=== PATIENT | female | born 1945 | race Caucasian/White ===

== ENCOUNTER 2025-03-29 21:04 | Emergency (ER) | payer OTHER, SELFPAY ==
--- OUTSIDE RECORDS SUMMARY | 2025-03-29 21:07 | XMS_ITS | Encounter Summary ---
Author Organization [place] Address [facility] [place] [address] Care Team Providers Care Slab Depiler Operator Name Role Phone Trinidad Morris APRN AIRCRAFT MAINTENANCE MANAGER Primary Care Provi alvarado Unavailable Mauro Jackman MD Primary Care Provider [phone] Sheila Osei MD Unavailable + [phone] hSeila Osei MD Unavailable + [phone] No Ref-Primary, Physician Primary Care Provider Trinidad Morris APRN, CNP Unavailable Un available Sheila Osei MD Unavailable + [phone] Nicol Feldman MD Unavailable [phone] Reason for Visit * Reason Comments Medication Refill Tramadol Encounter Details Date Type Department Care Team (Late st Contact Info) Description 12/14/[address] [place] [address] Trinidad Morris APRN CNP Medication Refill (Tramadol ) Social History Tobacco Use Types Packs/Day Years Used Date Smoking Tobacco: Former Smokeless Tobacco: Never Alcohol Use Standard Drinks/Week Comments No 0 (1 standard drink = 0.6 oz pur e alcohol) Comments No Sex and Gender Information Value Date Recorded Sex Assigned at Not on file Legal Sex Female 3:06 AM 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 See the FNA message from this AM. She states she is in so much pain she doesn't want to live anymore if doesn't get any relief. She might start drinking alcohol to help with the pain. Informed her that the clinic just recently opened and we have not reviewed all the messages yet. She has appt tomorrow with Pain clinic. She has appt next month with Psych Last Tramadol refill on 11/15/16 for #120 Please confirm directions. The Max states 8 in 24 hours. There is a note that states she may have been taking 1 every 4 hours, so please change if needed. documented in this encounter Plan of Treatment Not on file documented as of this encounter Visit Diagnoses Not on filedocumented in this encounter Additional Health Concerns Assessment Noted Time PHQ-9 Depression Total Score: 0 10/27/19 17 7:10 AM COMPLAINT INVESTIGATOR documented as of this encounter Care Teams Slab Depiler Operator Relationship Specialty Start Date End Date Trinidad Morris APRN AIRCRAFT MAINTENANCE MANAGER PCP - General Nurse Practitioner - Adult Health 09/26/16 02/11/17 Muaro Jackman MD [address] [place] [address] PCP - General Internal Medicine 02/12/17 12/16/18 Sheila Osei MD [address] [place] [address] PCP - Assigned PCP 02/17/18 11/05/18 No Ref-Primary, Physician PCP - General 01/14/19 Sheila Osei MD [address] [place] [address] Assigned PCP 02/17/18 02/15/19 Trinidad Morris APRN AIRCRAFT MAINTENANCE MANAGER Assigned PCP 02/16/19 11/29/19 Sheila Osei MD [address] [place] [address] Assigned PCP 11/30/19 02/19/21 Nicol Feldman MD XXX RETIRED 01/31/2022 XXX Assigned OBGYN Provider 06/25/20 07/17/20 documented as of this encounter
--- OUTSIDE RECORDS SUMMARY | 2025-03-29 21:07 | XMS_ITS | Clinical Summary ---
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 Name Role Phone Pcp, No Primary Care Provider Unavailabl e Allergies Active Allergy Reactions Criticality Noted Date Comments Alosetron Other - Describe In Comment Field 02/06/2012 Other reaction(s): Other (see comments) Amitriptyline Other - Describe In Comment Field 05/29/2013 Gastritis Other reaction(s): Other (see comments) Gastritis Gastritis Amlodipine Edema 11/15/2011 Other reaction(s): Edema Amoxapine Other - Describe In Comment Field 02/06/2012 Other reaction(s): Other (see comments) Atenolol Other - Describe In Comment Field 09/26/2016 Other reaction(s): Other (see comments) Atropine Other - Describe In Comment Field 09/26/2016 Other reaction(s): Other (see comments) Buprenorphine-Naloxone Diabetes, Exacerbation,Emoti onal Disturbance,Anxiet y,Other - Describe In Comment Field 11/19/2016 Other reaction(s): Diabetes, Exacerbation, Emotional Disturbance Other reaction(s): Diabetes, Exacerbation, Emotional Disturbance Bupropion Other - Describe In Comment Field 02/06/2012 Other reaction(s): Other (see comments) Buspirone Other - Describe In Comment Field 09/26/2016 Other reaction(s): Other (see comments) Cholestyramine Other - Describe In Comment Field 09/26/2016 Other reaction(s): Other (see comments) Ciprofloxacin Other - Describe In Comment Field 09/26/2016 Other reaction(s): Other (see comments) Citalopram Other - Describe In Comment Field 02/06/2012 Other reaction(s): Other (see comments) Clomipramine Other - Describe In Comment Field 02/06/2012 Other reaction(s): Other (see comments) Colesevelam Other - Describe In Comment Field 02/06/2012 Other reaction(s): Other (see comments) Cortisone Other - Describe In Comment Field Medium 12/28/2015 Lack of appetite Other reaction(s): Other - Describe In Comment Field Lack of appetite Other reaction(s): Other (see comments) Other reaction(s): Other - Describe In Comment Field Lack of appetite Lack of appetite Other reaction(s): Other - Describe In Comment Field Lack of appetite Cyclobenzaprine Intolerance-Can't Take,Nausea And Vomiting 03/30/2016 Caused knee pain at night Other reaction(s): GI intolerance, Intolerance-Can't Take Caused knee pain at night Caused knee pain at night Caused knee pain at night Diphenoxylate Other - Describe In Comment Field 02/06/2012 Other reaction(s): Other (see comments) Doxepin Other - Describe In Comment Field 05/29/2013 Other reaction(s): Other (see comments) Duloxetine Other - Describe In Comment Field 05/29/2013 Other reaction(s): Other (see comments) Escitalopram Other - Describe In Comment Field 02/06/2012 Other reaction(s): Other (see comments) Fluoxetine Other - Describe In Comment Field 02/06/2012 Other reaction(s): Other (see comments) Gabapentin GI Upset,Other - Describe In Comment Field Medium 03/30/2016 Other reaction(s): GI Upset Other reaction(s): GI Upset Other reaction(s): GI Upset, Other (see comments) Other reaction(s): GI Upset Hydrochlorothiazide Other - Describe In Comment Field 09/26/2016 Other reaction(s): Other (see comments) Hydrocodone-Acetaminophen Rash Low 04/10/2012 Mixture of vicodin and tramadol. Patient developed acne from [place] Mixture of vicodin and tramadol. Patient developed acne from [place] Mixture of vicodin and tramadol. Patient developed acne from [place] Lidocaine Other - Describe In Comment Field 09/26/2016 Lidocaine patch changed taste of food Other reaction(s): Other (see comments) Lidocaine patch changed taste of food Lidocaine patch changed taste of food Lorazepam Other - Describe In Comment Field 09/26/2016 Other reaction(s): Other (see comments) Losartan Intolerance-Can't Take 07/19/2015 Other reaction(s): GI intolerance Other reaction(s): GI intolerance, Intolerance-Can't Take Mirtazapine *Unknown 05/29/2013 Nitroimidazoles Intolerance-Can't Take,Other - Describe In Comment Field 12/13/2011 Other reaction(s): GI intolerance Other reaction(s): Other (see comments) Nortriptyline Other - Describe In Comment Field 09/26/2016 Other reaction(s): Other (see comments) Olanzapine Other - Describe In Comment Field 02/06/2012 Other reaction(s): Other (see comments) Oxycodone Other - Describe In Comment Field 09/26/2016 Other reaction(s): Other (see comments) Penicillin G Rash Medium 11/21/2011 Penicillins Hives 07/13/2011 Quetiapine Other - Describe In Comment Field 02/06/2012 Other reaction(s): Other (see comments) Thioridazine Other - Describe In Comment Field 02/06/2012 Other reaction(s): Other (see comments) Trazodone Other - Describe In Comment Field 02/06/2012 Other reaction(s): Other (see comments) Zolpidem Other - Describe In Comment Field 02/06/2012 Other reaction(s): Other (see comments) Medications Digestive Enzymes capsuleIndication s:Generalized abdominal discomfort Take 1 capsule by mouth 3 times daily before meals. 0 07/07/20 13 Active cholecalciferol (VITAMIN D-3) 2,000 unit capsule Take 1 capsule by mouth once daily. 0 07/14/20 13 Active lactobacillus rhamnosus, GG, (CULTURELLE PROBIOTICS) 10 billion cell -200 mg capsule Take 1 Cap by mouth once daily. 0 07/14/20 13 Active Magnesium 200 mg tab Take 2 tablets by mouth 3 times daily. 0 07/29/20 13 Active omega-3 fatty acids-vitamin E (FISH OIL) 1,000 mg cap Take 1 capsule by mouth 2 times daily. 0 07/29/20 13 Active Acetylcysteine 600 mg cap Take 600 mg by mouth once daily. 0 07/29/20 13 Active Glutamine (L-GLUTAMINE) 500 mg tab Take 500 mg by mouth once daily if needed. 0 04/02/20 15 Active camphor-menthol (TIGER BALM) oint Apply to affected areas as needed 0 04/02/20 15 Active benzoyl peroxide 5% 5 % gel Apply topically to affected area(s) once daily. 0 04/02/20 15 Active benzoyl peroxide 10% (BENZAC-W WASH) 10 % external wash Apply topically to affected area(s) 2 times daily. 1 Bottle 0 04/02/20 15 Active Milk Thistle 150 mg cap Take 150 mg by mouth once daily. 0 04/02/20 15 Active Valerian Root 250 mg cap Take 250 mg by mouth at bedtime if needed. 0 04/02/20 15 Active medication order composer YUNIOR 500mg 1 tab by mouth three times daily 0 07/19/20 15 Active Cranberry 400 mg capsule Take 1 capsule by mouth 3 times daily. 0 08/17/20 15 Active capsaicin (ZOSTRIX) 0.025 % creamIndications: Degeneration of L4-L5 intervertebral disc,Low back pain radiating to left leg apply to affected areas as needed for pain. 0 09/28/19 16 Active lysine (L-LYSINE) 500 mg tab Take 2 tablets by mouth 3 times daily. 0 01/24/20 16 Active Melatonin 5 mg tab Take 2 tablets by mouth at bedtime. 0 01/24/20 16 Active multivitamin (MVI) tablet Take 2 tab po twice daily 0 01/24/20 16 Active medication order composer Patient taking Inflammacore. Use at least 1 scoop daily. 0 04/28/20 16 Active carvedilol (COREG) 6.25 mg tabletIndications :HTN (hypertension) Take 3 tablets by mouth 2 times daily with meals. 90 tablet 1 09/04/19 17 Active ciclopirox solution (LOPROX) 8 % solutionIndicatio ns:Nail fungus Apply topically to affected area(s) at bedtime. On fingernails at bedtime 1 Bottle 09/13/19 17 Active acetaminophen (TYLENOL) 325 mg tabletIndications :Chronic pain syndrome Take 1-2 tablets by mouth every 4 hours if needed. Max acetaminophen dose: 4000mg in 24 hrs. 0 09/20/19 17 Active loperamide (IMODIUM) 2 mg capsuleIndication s:Loose stools Take 4mg by mouth with 1st loose stool, then 2mg with each subsequent loose stool. Max 16 mg in 24 hrs 0 09/20/19 17 Active pyridoxine, vitamin B6, (VITAMIN B6) 50 mg tabletIndications :Healthcare maintenance Take 5 tablets by mouth once daily. 09/20/19 17 Active lisinopril (PRINIVIL; ZESTRIL) 20 mg tabletIndications :Essential hypertension Take 1 tablet by mouth 2 times daily. 180 tablet 09/22/19 17 Active guaiFENesin (MUCINEX) 600 mg Extended-Release tabletIndications :Pneumonia of right lower lobe due to infectious organism Take 1 tablet by mouth 2 times daily. 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 Length of need: 10 days 1 Kit 10/11/19 17 Active erythromycin ophthalmic ointment 0.5%Indications:B lepharitis, unspecified laterality, unspecified type Place 1 Strip into the eye(s) 6 times daily. 3.5 g 3 7 4:05 PM CDT 11/16/19 17 Active fluconazole (DIFLUCAN) 150 mg tabletIndications :Adalgisa infection 150mg PO q72 hours x2 2 tablet 03/29/20 18 Active benzonatate (TESSALON) 200 mg capsuleIndication s:Acute viral bronchitis Take 1 capsule by mouth 3 times daily if needed for Cough. 20 capsule 10/22/19 20 Active albuterol (PROVENTIL) 0.083 % neb solutionIndicatio ns:Acute viral bronchitis Inhale 3 mL via a nebulizer every 6 hours if needed. 1 box 10/22/19 20 Active traMADoL (ULTRAM) 50 mg tabletIndications :Chronic pain of left lower extremity,Chronic abdominal pain Take 1 Tablet (50 mg) by mouth every 8 hours if needed for Pain. 6 Tablet 03/12/20 25 Active traMADol (ULTRAM) 50 mg tablet Take 100 mg by mouth 3 times daily. 025 Discontin ued(*Med complete/ Regimen complete/ Level of care change) cephalexin 500 mg capsuleIndication s:urinary tract infection Take 1 Capsule (500 mg) by mouth two times daily for 7 days. 14 Capsule 03/12/20 25 025 Active Problems Problem Noted Date Diagnosed Date Normocytic anemia 02/01/2025 Thrombocytopenia 02/01/2025 Hyponatremia 02/01/2025 Acute heart failure with pre served ejection fraction (HFpEF) 02/01/2025 Female genital prolapse 09/10/2018 Generalized anxiety disorder 03/30/2017 History of suicide attempt 12/27/2016 Overview (05/17/2019): Overview: multiple admissions Somatization disorder 10/26/2016 Osteoarthritis 10/26/2016 Chronic low back pain 10/26/2016 Cluster B personality disorder 09/16/2016 Opioid use disorder, severe, dependence 09/16/19 17 Pain management contract broken 09/07/2016 Overview (09/07/2016): Patient was told she could have a 1 month supply of tramadol so that she could see her new provider on my last visit with her in August. She is limited to a defined amount per month. Patient went to ER and received Codeine tablets in violation of her agreement to not get controlled substances from providers other than her designated PCP. No further tramadol or narcotics will be given. Humza Trevino MD .................... 09/07/2016 5:41 PM Pain medication agreement si gned with Dr Trevino [facility]SA 04/13/2016 04/13/2016 Overview (04/13/2016): Patient will limit her tramadol to 6 tablets a day. No early refills. No refills with other providers. 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 No early refills. Medication is for connective tissue disorder and chronic low back pain Recurrent genital herpes simplex 12/19/2012 Unspecified personality disorder 12/12/2012 Moderate recurrent major depression 07/13/2011 Connective tissue disorder 07/13/2011 Unspecified essential hypertension Chronic pain syndrome H/O: depression Resolved Problems Problem Noted Date Diagnosed Date Resolved Date Pneumonia 10/10/2016 02/01/2025 Hypokalemia 10/10/2016 02/01/2025 Hyponatremia 10/10/2016 02/01/2025 Pain medication agreement 10/15/2012 Adjustment disorder with mix ed anxiety and depressed mood 10/10/2012 09/01/2015 Unspecified essential hypertension 07/13/2011 02/01/2025 Encounters Date Type Department Care Team Description 03/28/2025 9:14 AM CDT - 03/28/2025 10:41 AM CDT Emergency [facility] [address] [place] [address] Nicholas Ren MD Myalgia (Primary Dx); Pain Discharge Disposition: Home Self Care 03/28/2025 Travel 03/12/2025 6:20 PM CDT - 03/12/2025 9:48 PM CDT [address] [address] [address] [address] Cr Valle PA Berndt, Daniel, MD Chronic pain of left lower extremity (Primary Dx); Chronic abdominal pain; Acute cystitis without hematuria Discharge Disposition: Home Self Care 02/01/2025 2:44 AM CDT - 02/01/2025 12:30 PM CDT Hospital Encounter [facility] [address] [place] [address] [facility] [place] Glynn MD Qadri, Ghaziuddin Ahmed, MBBS Murmur, heart (Primary Dx); Acute heart failure with preserved ejection fraction (HFpEF) (HC) Discharge Disposition: Against Medical Advice or Discontinued Care 01/31/2025 9:11 PM CDT - 02/01/2025 1:[address] [facility] [address] [address] Jaimie Wray MD Acute hypoxic respiratory failure (HC) (Primary Dx); Acute congestive heart failure, unspecified heart failure type (HC); Systolic murmur; Hyponatremia; Smoker Discharge Disposition: Home Self Care 01/31/2025 Telephone [facility] [address] [place] [address] Lorne Tatum MD Inpatient Physician Call 01/31/2025 Travel from Last 3 Months Immunizations Immunization Administration Dates Next Due Hepatitis B (Adult) 04/06/1992,11/03/1991,1991 Influenza, High-dose Inactivated 09/22/2016 Influenza, IIV3 (Age >=3 years) 06/03/2014,06/12 Tuberculin (PPD) 07/08/2012 Zoster (Zostavax-ZVL, live) 04/30/2012 Family History Medical History Relation Name Comments Arthritis Father rheumatoid Hypertension Father Hypertension Mother Relation Name Status Comments Father Maternal Grandfather Maternal Grandmother Mother Alive Paternal Grandfather Paternal Grandmother Sister 1 Alive Sister 2 Alive Son 1 Alive Son 2 Alive Social History Tobacco Use Types Packs/Day Years Used Date Smoking Tobacco: Former Cigarettes Q uit: 09/03/1988 Smokeless Tobacco: Former Quit: 1986 Tobacco Cessation:Counseling Given: Not Answered Alcohol Use Standard Drinks/Week Comments No 0 (1 standard drink = 0.6 oz pur e alcohol) Interpersonal Safety Answer Date Record ed Are you being hit, kicked, p ushed or yelled at (see row info)? 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 Gender Identity Not on file Sexual Orientation Not on file Occupation Industry Job Start Date Job End Date Retired Not on file Not on file Not on file Obstetrics History Last Filed Vital Signs Vital Sign Reading Time Taken Comments Blood Pressure 159/91 03/28/2025 9:30 AM CDT Pulse 87 03/28/2025 9:30 AM CDT Temperature 36.8 C (98.3 F) 03/28/2025 9:17 AM CDT Respiratory Rate 18 03/28/2025 9:17 AM CDT Oxygen Saturation 93% 03/28/2025 9:30 AM CDT Inhaled Oxygen Concentration - - Weight 62.6 kg (138 lb) 03/28/2025 9:17 AM CDT Height 172.7 cm (5' 8) 03/28/2025 9:17 AM CDT Body Mass Index 20.98 03/28/2025 9:17 AM CDT Plan of Treatment Health Maintenance Due Date Last Done Comments Pneumococcal series for age 50+ (1 of 2 - PCV) 1964 Medicare Wellness for age 65+ 2009 Zoster (shingles) series for age 50+ (2 of 3) 06/25/2012 04/30/2012 BMI (ht and wt on same day) for age 18+ 08/21/2017 08/21/2016, 01/05/2016, 12/11/2015, Additional history exists Depression screening for age 12+ 09/15/2017 09/15/2016, 08/14/2016, 05/29/2016, Additional history exists RSV vaccine for adults or (1 - 1-dose 75+ series) 2019 Tetanus booster 11/14/2021 11/15/2011 (Declined) COVID-19 vaccine series ( season) 2024 Influenza Vaccine (#1) 2025 7, 06/03/2014, 06/12/2011 Hepatitis B series for 19+ Completed 04/06, 11/03/1991, 10/05/1991 DEXA/DXA scan for age 65+ Completed 2013, 12/22/2011 (Declined) Procedures Procedure Name Priority Date/Time Associated Diagnosis Comments CBC WITH AUTO DIFFERENTIAL STAT 03/28/2025 9:29 AM CDT CK TOTAL STAT 03/28/2025 9:29 AM CDT BASIC METABOLIC PANEL STAT 03/28/2025 9:29 AM CDT CBC WITH AUTO DIFFERENTIAL STAT 03/28/2025 9:29 AM CDT CBC WITH AUTO DIFFERENTIAL STAT 03/12/2025 8:29 PM CDT ETHANOL SERUM OR PLASMA STAT 03/12/2025 8:29 PM CDT LIPASE STAT 03/12/2025 8:29 PM CDT COMP METABOLIC PANEL STAT 03/12/2025 8:29 PM CDT CBC WITH AUTO DIFFERENTIAL STAT 03/12/2025 8:29 PM CDT URINALYSIS MICROSCOPIC STAT 03/12/2025 8:27 PM CDT UA W/ SEDIMENT EXAM REFLEXED PER CRITERIA STAT 03/12/2025 8:27 PM CDT SCAN-CARDIAC STRIP 02/01/2025 7: 44 AM CDT SCAN-CARDIAC STRIP 02/01/2025 4: 16 AM CDT HEPATIC FUNCTION PANEL HAILY 02/01/2025 12:05 AM CDT TROPONIN T (HS) ONE TIME Timed 02/01/2025 12:05 AM CDT EKG 12 LEAD STAT 01/31/2025 10:32 PM CDT XR CHEST 1 VIEW PORTABLE STAT 01/31/2025 10:18 PM CDT CBC WITH AUTO DIFFERENTIAL STAT 01/31/2025 9:54 PM CDT PRO-BNP STAT 01/31/2025 9:54 PM CDT TROPONIN T (HS) ACUTE W/2HR REFLEX STAT 01/31/2025 9:54 PM CDT BASIC METABOLIC PANEL STAT 01/31/2025 9:54 PM CDT CBC WITH AUTO DIFFERENTIAL STAT 01/31/2025 9:54 PM CDT COVID-19 MOLECULAR Today 01/31/2025 9: 49 PM CDT BEDSIDE US STUDY ARCHIVE Routine 01/31/2025 9:29 PM CDT XR DXA BONE DENSITY 2 SITES AXIAL Routine 08/12/2014 4:04 PM LINK CUTTER Post menopausal problems from Last 3 Months or Most Recently Relevant to Health Maintenance Results * (ABNORMAL) CBC WITH AUTO DIFFERENTIAL (03/28/2025 9:29 AM CDT) Only the most recent of3 resultswithin the time period is included. WHITE BLOOD COUNT 4.7 4.5 - 11.0 thou/cu mm 03/28/2025 9:35 AM [facility] RED BLOOD COUNT 3.24(L) 4.00 - 5.20 mil/cu mm 03/28/2025 9:35 AM [facility] HEMOGLOBIN 9.6(L) 12.0 - 16.0 g/dL 03/28/2025 9:35 AM [facility] HEMATOCRIT 29.5(L) 33.0 - 51.0 % 03/28/2025 9:35 AM [facility] MCV 91 80 - 100 fL 03/28/2025 9:35 AM [facility] MCH 29.6 26.0 - 34.0 pg 03/28/2025 9:35 AM [facility] MCHC 32.5 32.0 - 36.0 g/dL 03/28/2025 9:35 AM [facility] RDW 14.2 11.5 - 15.5 % 03/28/2025 9:35 AM [facility] PLATELET COUNT 224 140 - 440 thou/cu mm 03/28/2025 9:35 AM [facility] MPV 8.4 6.5 - 11.0 fL 03/28/2025 9:35 AM [facility] % NEUT 71.5 % 03/28/2025 9:35 AM [facility] % LYMPH 14.5 % 03/28/2025 9:35 AM [facility] % MONO 8.7 % 03/28/2025 9:35 AM [facility] % EOS 3.6 % 03/28/2025 9:35 AM [facility] % BASO 1.7 % 03/28/2025 9:35 AM T [facility] ABSOLUTE NEUTROPHILS 3.4 1.7 - 7.0 thou/cu mm 03/28/2025 9:35 AM T [facility] ABSOLUTE LYMPHOCYTES 0.7(L) 0.9 - 2.9 thou/cu mm 03/28/2025 9:35 AM T [facility] ABSOLUTE MONOCYTES 0.4 <0.9 thou/cu mm 03/28/2025 9:35 AM [facility] ABSOLUTE EOSINOPHILS 0.2 <0.5 thou/cu mm 03/28/2025 9:35 AM [facility] ABSOLUTE BASOPHILS 0.1 <0.3 thou/cu mm 03/28/2025 9:35 AM T [facility] Blood BLOOD SPECIMEN / Unknown Venipuncture / Unknown 03/28/2025 9:29 AM CDT 03/28/2025 9:32 AM CDT us Nicholas Ren MD HEMATOLOGY Fin al Result [facility] [address] [place] [address] * CK TOTAL (03/28/2025 9:29 AM CDT) CK,TOTAL 94 26 - 192 IU/L 03/28/2025 9:50 AM CDT [facility] Blood BLOOD SPECIMEN / Unknown Venipuncture / Unknown 03/28/2025 9:29 AM CDT 03/28/2025 9:32 AM CDT Nicholas Ren MD CHEMISTRY Fin al Result [facility] [address] [place] [address] * (ABNORMAL) BASIC METABOLIC PANEL (03/28/2025 9:29 AM CDT) Only the most recent of2 resultswithin the time period is included. SODIUM 131(L) 136 - 145 mmol/L 03/28/2025 9:50 AM [facility] POTASSIUM 4.5 3.5 - 5.1 mmol/L 03/28/2025 9:50 AM [facility] CHLORIDE 95(L) 98 - 107 mmol/L 03/28/2025 9:50 AM [facility] CO2,TOTAL 25 22 - 29 mmol/L 03/28/2025 9:50 AM [facility] ANION GAP 11 5 - 18 03/28/2025 9:50 AM [facility] GLUCOSE 120(H) 70 - 99 mg/dL 03/28/2025 9:50 AM [facility] CALCIUM 9.0 8.8 - 10.4 mg/dL 03/28/2025 9:50 AM [facility] Comment: Reference ranges for this test were updated on 07/08/2024 to reflect our healthy population more accurately. Reference range changes are not retroactively applied to results, but previous results using the same methodology can be interpreted in the context of the new reference range. BUN 16 8 - 23 mg/dL 03/28/2025 9:50 AM [facility] CREATININE 0.56 0.50 - 0.90 mg/dL 03/28/2025 9:50 AM [facility] BUN/CREAT RATIO 29(H) 10 - 20 9:50 AM [facility] eGFR >90 >90 mL/min/1. 73m2 03/28/2025 9:50 AM [facility] Comment:As of 2021, eG FR is calculated by the CKD-EPI creatinine equation without race adjustment. eGFR can be influenced by muscle mass, exercise, and diet. The reported eGFR is an estimation only and is only applicable if the renal function is stable. Blood BLOOD SPECIMEN / Unknown Venipuncture / Unknown 03/28/2025 9:29 AM CDT 03/28/2025 9:32 AM CDT Nicholas Ren MD CHEMISTRY Fin al Result Performing Organization Address [facility] de Phone Number [facility] [address] [place] [address] * ETHANOL SERUM OR PLASMA (03/12/2025 8:29 PM CDT) ETHANOL <0.010 <0.010 g/dL 03/12/2025 8:54 PM CDT [facility] Blood BLOOD SPECIMEN / Unknown Venipuncture / Unknown 03/12/2025 8:29 PM CDT 03/12/2025 8:32 PM CDT us Butch Kennedy MD CHEMISTRY Final Result Performing Organization Address [facility] de Phone Number [facility] [address] [place] [id number] * LIPASE (03/12/2025 8:29 PM CDT) Pathologist [facility] LIPASE 26.1 13.0 - 60.0 IU/L 03/12/2025 8:54 PM CDT [facility] Blood BLOOD SPECIMEN / Unknown Venipuncture / Unknown 03/12/2025 8:29 PM CDT 03/12/2025 8:32 PM CDT Butch Kennedy MD CHEMISTRY Final Result Performing Organization Address [facility] de Phone Number [facility] [address] [phone] * (ABNORMAL) COMP METABOLIC PANEL (03/12/2025 8:29 PM CDT) SODIUM 132(L) 136 - 145 mmol/L 03/12/2025 8:54 PM CDT [facility] POTASSIUM 4.2 3.5 - 5.1 mmol/L 03/12/2025 8:54 PM CDT [facility] CHLORIDE 96(L) 98 - 107 mmol/L 03/12/2025 8:54 PM [facility] CO2,TOTAL 24 22 - 29 mmol/L 03/12/2025 8:54 PM [facility] ANION GAP 12 5 - 18 03/12/2025 8:54 PM [facility] GLUCOSE 109(H) 70 - 99 mg/dL 03/12/2025 8:54 PM [facility] CALCIUM 9.0 8.8 - 10.4 mg/dL 03/12/2025 8:54 PM [facility] Comment: Reference ranges for this test were updated on 07/08/2024 to reflect our healthy population more accurately. Reference range changes are not retroactively applied to results, but previous results using the same methodology can be interpreted in the context of the new reference range. BUN 16 8 - 23 mg/dL 03/12/2025 8:54 PM [facility] CREATININE 0.57 0.50 - 0.90 mg/dL 03/12/2025 8:54 PM [facility] BUN/CREAT RATIO 28(H) 10 - 20 8:54 PM [facility] eGFR >90 >90 mL/min/1.7 3m2 03/12/2025 8:54 PM [facility] Comment:As of 2021, eG FR is calculated by the CKD-EPI creatinine equation without race adjustment. eGFR can be influenced by muscle mass, exercise, and diet. The reported eGFR is an estimation only and is only applicable if the renal function is stable. ALBUMIN 3.9(L) 4.0 - 4.9 g/dL 03/12/2025 8:54 PM [facility] PROTEIN,TOTAL 6.0 6.0 - 8.0 g/dL 03/12/2025 8:54 PM [facility] BILIRUBIN,TOTAL 0.7 0.0 - 1.2 mg/dL 03/12/2025 8:54 PM [facility] ALK PHOSPHATASE 57 35 - 104 IU/L 03/12/2025 8:54 PM [facility] ALT (SGPT) 15 10 - 35 IU/L 03/12/2025 8:54 PM [facility] AST (SGOT) 25 10 - 35 IU/L 03/12/2025 8:54 PM [facility] Blood BLOOD SPECIMEN / Unknown Venipuncture / Unknown 03/12/2025 8:29 PM CDT 03/12/2025 8:32 PM CDT Butch Kennedy MD CHEMISTRY Final Result Performing Organization Address [facility]/ZIP Co de Phone Number [facility] [address] [address] * (ABNORMAL) URINALYSIS MICROSCOPIC (03/12/2025 8:27 PM CDT) RBC 0-2 0-2, None Seen /HPF 03/12/2025 8:49 PM [facility] WBC 6-10(A) 0-2, 3-5, None Seen /HPF 03/12/2025 8:49 PM [facility] BACTERIA Many(A) None Seen, Rare, Few Bacteria/H PF 03/12/2025 8:49 PM [facility] EPITHELIAL CELLS Few None Seen, Few Epi/HPF 03/12/2025 8:49 PM [facility] WHITE CELL CLUMPS Present(A) (none) 03/12/2025 8:49 PM [facility] Urine URINE SPECIMEN / Unknown Non-Blood / Unknown 03/12/2025 8:27 PM CDT 03/12/2025 8:34 PM CDT us Owa Ed Triage URINE Final Result Performing Organization Address City/[facility]/ZIP Co de Phone Number [facility] [address] [address] * (ABNORMAL) UA W/ SEDIMENT EXAM REFLEXED PER CRITERIA (03/12/2025 8:27 PM CDT) COLOR Yellow Yellow Color 03/12/2025 8:38 PM CDT [facility] CLARITY Clear Clear Clarity 03/12/2025 8:38 PM [facility] SPECIFIC GRAVITY,URINE <=1.005(A) 1.010, 1.015, 1.020, 1.025 03/12/2025 8:38 PM T [facility] PH,URINE 6.5 6.0, 7.0, 8.0, 5.5, 6.5, 7.5, 8.5 03/12/2025 8:38 PM T [facility] UROBILINOGEN, QUALITATIVE Normal Normal EU/dl 03/12/2025 8:38 PM T [facility] PROTEIN, URINE Negative Negative mg/dL 03/12/2025 8:38 PM T [facility] GLUCOSE, URINE Negative Negative mg/dL 03/12/2025 8:38 PM T [facility] KETONES,URINE Negative Negative mg/dL 03/12/2025 8:38 PM T [facility] BILIRUBIN,URI NE Negative Negative 03/12/2025 8:38 PM [facility] OCCULT BLOOD,URINE Small(A) Negative 03/12/2025 8:38 PM [facility] NITRITE Positive(A) Negative 03/12/2025 8:38 PM [facility] LEUKOCYTE ESTERASE Moderate(A) Negative 03/12/2025 8:38 PM [facility] Urine URINE SPECIMEN / Unknown Non-Blood / Unknown 03/12/2025 8:27 PM CDT 03/12/2025 8:34 PM CDT us Butch Kennedy MD URINE Final Result Performing Organization Address City/State/[facility] Co de Phone Number [facility] [address] [address] * SCAN-CARDIAC STRIP (02/01/2025 7:44 AM CDT) us Scanner OTHER Final Result * SCAN-CARDIAC STRIP (02/01/2025 4:16 AM CDT) us Scanner OTHER Final Result * (ABNORMAL) TROPONIN T (HS) ONE TIME (02/01/2025 12:05 AM CDT) TROPONIN T HS 24(H) 6-10 ng/L ng/L 02/01/2025 12:31 AM [facility] Blood BLOOD SPECIMEN / Unknown Venipuncture / Unknown 02/01/2025 12:05 AM CDT 02/01/2025 12:11 AM CDT us Jaimie Wray MD CHEMISTRY Final Res ult [facility] [address] [address] * (ABNORMAL) Hepatic function panel AM (02/01/2025 12:05 AM CDT) Pathologist [facility] ALBUMIN 4.3 4.0 - 4.9 g/dL 02/01/2025 8:19 AM [facility] PROTEIN,TOTAL 6.3 6.0 - 8.0 g/dL 02/01/2025 8:19 AM [facility] BILIRUBIN,TOTAL 0.9 0.0 - 1.2 mg/dL 02/01/2025 8:19 AM [facility] BILIRUBIN,DIRECT 0.4(H) 0.0 - 0.2 mg/dL 02/01/2025 8:19 AM [facility] BILIRUBIN,INDIRE CT 0.5 0.2 - 0.8 mg/dL 02/01/2025 8:19 AM [facility] ALK PHOSPHATASE 69 35 - 104 IU/L 02/01/2025 8:19 AM [facility] ALT (SGPT) 15 10 - 35 IU/L 02/01/2025 8:19 AM [facility] AST (SGOT) 30 10 - 35 IU/L 02/01/2025 8:19 AM [facility] Blood BLOOD SPECIMEN / Unknown Venipuncture / Unknown 02/01/2025 12:05 AM CDT 02/01/2025 12:11 AM CDT us Nicolas Glynn MD CHEMISTRY Romelia l Result Performing Organization Address City/[facility]/ZIP Co de Phone Number [facility] [address] [address] * EKG 12 Lead (01/31/2025 10:32 PM CDT) Interpretation Sinus rhythm with Premature atrial complexes Possible Left atrial enlargement Left ventricular hypertrophy with repolarization abnormality ( [place] product ) 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 10-Oct-2016) QTcB >= 480 msec Abnormal ECG When compared with ECG of 22-Jun-2022 05:39, Premature atrial complexes are now Present Questionable change in QRS axis T wave inversion now evident in Lateral leads BEYOND NOW Ventricular Rate 94 BPM BEYOND NOW Atrial Rate 94 BPM BEYOND NOW P-R Interval 178 ms BEYOND NOW QRS Duration 94 ms BEYOND NOW QT 388 ms BEYOND NOW QTc 485 ms BEYOND NOW P [place] 75 degrees BEYOND NOW R [place] 75 degrees BEYOND NOW T [place] 67 degrees BEYOND NOW 01/31/2025 10:3 2 PM CDT 02/01/2025 12:50 PM CDT us Jaimie Wray MD EKG ORD Final Res ult Performing Organization Address [facility] Co de Phone Number BEYOND NOW [place], [place] * XR CHEST 1 VIEW PORTABLE (01/31/2025 10:18 PM CDT) Anatomical Region Laterality Modality HEART, THORAX, CHEST Digital Rad iography us Jaimie Wray MD GENERAL IMAGING Final Res ult * (ABNORMAL) TROPONIN T (HS) ACUTE W/2HR REFLEX (01/31/2025 9:54 PM CDT) TROPONIN T HS 21(H) 6-10 ng/L ng/L 01/31/2025 10:26 PM CDT [facility] Blood BLOOD SPECIMEN / Unknown Venipuncture / Unknown 01/31/2025 9:54 PM CDT 01/31/2025 9:56 PM CDT [facility] - 01/31/2025 10:26 PM CDT hs-cTnT (Elecsys Troponin T Gen 5) concentration (s) above the sex-specific 99th percentile (16 ng/L or greater for males or 11 ng/L or greater for females) are indicative of myocardial injury. If initial hs-cTnT <=100 ng/L at presentation, a 0h/2h ABSOLUTE (ng/L) delta change (rising or falling) of >=10 ng/L suggests a significant change, whereas a 0h/2h delta change <=3 ng/L suggests no significant change. If initial hs-cTnT >100 ng/L at presentation, a 0h/2h/ RELATIVE (percent, %) delta change of 20% is suggested to distinguish patients with acute vs. chronic myocardial injury. There are multiple etiologies that can cause hs-cTnT increases above the 99th percentile (myocardial injury) other than acute myocardial infarction. Clinical context and careful clinical evaluation are critical for diagnosis and risk-stratification. The diagnosis of acute myocardial infarction requires a rising and/or falling pattern in hs-cTnT concentrations with at least one value above the sex-specific 99th percentile PLUS at least one of the following clinical criteria: ischemic symptoms, new or presumed new significant ST-T wave changes or new LBBB, development of pathological Q waves, imaging evidence of new loss of viable myocardium or new regional wall motion abnormality, or identification of intracoronary atherothrombosis or an acute angiographic culprit on coronary angiography. In appropriate low-risk patients with a non-ischemic electrocardiogram without active chest pain with a symptom onset >3-hours without recurrence, a single initial hs-cTnT<6 ng/L identifies patient with a very low risk in emergency department patient population. us Jaimie Wray MD CHEMISTRY Final Res ult [facility] [address] [address] * (ABNORMAL) PRO-BNP (01/31/2025 9:54 PM CDT) PRO-BNP 1,467(H) <450 pg/mL 01/31/2025 10:30 PM CDT [facility] Blood BLOOD SPECIMEN / Unknown Venipuncture / Unknown 01/31/2025 9:54 PM CDT 01/31/2025 9:56 PM CDT [facility] - 01/31/2025 10:30 PM CDT The following cut-points have been suggested for the use of proBNP for the diagnostic evaluation of heart failure (HF) in patient with acute dyspnea. Patients with eGFR >= 60 Diagnosis (rule in CHF) <50 Years Old 450 pg/mL 50 - 75 Years Old 900 pg/mL >75 Years Old 1800 pg/mL Exclusion (rule out CHF) Age Independent 300 pg/mL A cutoff of 1200 pg/mL for patients with an eGFR <60 yields a diagnostic sensitivity of 89% and specificity of 72% for acute congestive heart failure. us Jaimie Wray MD SEND OUTS Final Res ult Performing Organization Address City/[facility]/ZIP Co de Phone Number [address] [address] * COVID-19 MOLECULAR (01/31/2025 9:49 PM CDT) COVID 19 [facility] MOLECULAR Not detected Not detected 01/31/2025 10:13 PM CDT [facility] 01/31/2025 10:13 PM CDT [facility] Comment:Specimen submitted t o [facility] for testing. Other SPECIMEN FROM NASOPHARYNGEAL STRUCTURE / Unknown Non-Blood / Unknown 01/31/2025 9:49 PM CDT 01/31/2025 9:52 PM CDT us Jaimie Wray MD MICROBIOLOGY Final Res ult Performing Organization Address [facility]/ZIP Co de Phone Number [facility] [address] [address] * (ABNORMAL) XR DXA BONE DENSITY 2 SITES (08/12/2014 4:04 PM LINK CUTTER) Anatomical Region Laterality Modality Spine, HIPS, HIPL, HIPR Bone Den sitometry Narrative 08/13/2014 2:17 PM LINK CUTTER Please see scanned document for results of this study. Procedure Note Monica Velazquez MD - 08/13/2014 Please see scanned document for results of this study. us Yinka Shabazz MD DEXA Final Result from Last 3 Months or Most Recently Relevant to Health Maintenance Insurance MEDICARE PART B HB ONLY [facility] MEDICARE PART A HB ONLY Member Subscriber Plan / Payer (Ef fective 2004-Present) Name:Keiry Juarez Member ID:[id number] Relation to Subscriber:Self Name:Keiry Juarez Subscriber ID:[id number] Payer ID:Not on file Group ID:Not on file Type:Not on file Address: ATTN: CLAIMS [address] MEDICARE PART B [place] ONLY Member Subscriber Plan / Payer (Ef fective 2004-Present) Name:Keiry Juarez Member ID:[id number] Relation to Subscriber:Self Name:Keiry Juarez Subscriber ID:[id number] Payer ID:Not on file Group ID:Not on file Type:Not on file Address: ATTN: CLAIMS [address] MEDICARE PART B [place] ONLY MEDICAID [id number] [place] [place] [phone] [employer] Advance Directives Documents on File Type Date Recorded 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 Healthcare Directive 09/06/2018 5:30 PM 7 Healthcare Directive 06/25/2013 4:25 PM L IVING WILL, 05/23/2013 Healthcare Directive 06/13/2013 12:00 AM ADVANCED DIRECTIVE Healthcare Directive 12/26/2011 12:00 AM A DVANCED DIRECTIVE Healthcare Directive 12/26/2011 12:00 AM A DVANCED DIRECTIVE * Full Code (Latest Code Status on File) Date Activated Date Inactivated Comments 02/01/2025 2:59 AM 02/01/2025 3:45 PM Question Answer Comments Code Status Discussion: Reviewed Preferences * DNR Date Activated Date Inactivated Comments 10/10/2016 9:45 PM 10/11/2016 11:34 PM Question Answer Comments Code Status Discussion: Discussed * Full Code Date Activated Date Inactivated Comments 09/15/2016 9:20 PM 09/20/2016 6:11 PM Question Answer Comments Code Status Discussion: Not Discussed Care Teams 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 PCP - General 10/15/19
--- OUTSIDE RECORDS SUMMARY | 2025-03-29 21:07 | XMS_ITS | Clinical Summary ---
Author Organization [facility] Address [address] [place] [id number] Care Team Providers Care Bicycle Designer Name Role Phone No Ref-Primary, Physician Primary Care Provider Allergies Active Allergy Reactions Criticality Noted Date Comments Alosetron 02/06/2012 Other reaction(s): Other (see comments) Amitriptyline 09/26/2016 Gastritis Other reaction(s): Other (see comments) Gastritis Amlodipine 11/15/2011 Other reaction(s): Edema Amoxapine 02/06/2012 Other reaction(s): Other (see comments) Atenolol 09/26/2016 Other reaction(s): Other (see comments) Atropine 09/26/2016 Other reaction(s): Other (see comments) Buprenorphine-Naloxone 11/19/2016 Other reaction(s): Diabetes, Exacerbation, Emotional Disturbance Bupropion 02/06/2012 Other reaction(s): Other (see comments) Buspirone 09/26/2016 Other reaction(s): Other (see comments) Cholestyramine 09/26/2016 Other reaction(s): Other (see comments) Ciprofloxacin 09/26/2016 Other reaction(s): Other (see comments) Citalopram 02/06/2012 Other reaction(s): Other (see comments) Clomipramine 02/06/2012 Other reaction(s): Other (see comments) Colesevelam 02/06/2012 Other reaction(s): Other (see comments) Cortisone Other (See Comments) Medium 12/28/2015 Other reaction(s): Other - Describe In Comment Field Lack of appetite Other reaction(s): Other (see comments) Other reaction(s): Other - Describe In Comment Field Lack of appetite Lack of appetite Cyclobenzaprine 03/30/2016 Other reaction(s): GI intolerance, Intolerance-Can't Take Caused knee pain at night Caused knee pain at night Diphenoxylate 02/06/2012 Other reaction(s): Other (see comments) Doxepin 09/26/2016 Other reaction(s): Other (see comments) Duloxetine 09/26/2016 Other reaction(s): Other (see comments) Duloxetine Hcl 09/26/2016 Escitalopram 02/06/2012 Other reaction(s): Other (see comments) Fluoxetine 02/06/2012 Other reaction(s): Other (see comments) Gabapentin Medium 03/30/2016 Other reaction(s): GI Upset Other reaction(s): GI Upset, Other (see comments) Other reaction(s): GI Upset Hydrochlorothiazide 09/26/2016 Other reaction(s): Other (see comments) Hydrocodone-Acetaminophen Rash Low 04/10/2012 Mixture of vicodin and tramadol. Patient developed acne from [place] Mixture of vicodin and tramadol. Patient developed acne from [place] Lidocaine 09/26/2016 Lidocaine patch changed taste of food Other reaction(s): Other (see comments) Lidocaine patch changed taste of food Lorazepam 09/26/2016 Other reaction(s): Other (see comments) Losartan 07/19/2015 Other reaction(s): GI intolerance, Intolerance-Can't Take Metronidazole 02/06/2012 Other reaction(s): Other (see comments) Nortriptyline 09/26/2016 Other reaction(s): Other (see comments) Olanzapine 02/06/2012 Other reaction(s): Other (see comments) Oxycodone 09/26/2016 Other reaction(s): Other (see comments) Penicillin G Rash Medium 11/21/2011 Penicillins Hives 07/13/2011 Quetiapine 02/06/2012 Other reaction(s): Other (see comments) Thioridazine 02/06/2012 Other reaction(s): Other (see comments) Trazodone 02/06/2012 Other reaction(s): Other (see comments) Zolpidem 02/06/2012 Other reaction(s): Other (see comments) Medications No known medications Active Problems Problem Noted Date Diagnosed Date MOSES (generalized anxiety disorder) 03/30/2017 Borderline personality disorder 03/30/2017 Chronic left-sided low back pain with left-sided sciatica 10/26/2016 Osteoarthritis, unspecified osteoarthritis type, unspecified site 10/26/2016 Somatization disorder 10/26/2016 Episode of recurrent major d epressive disorder, unspecified depression episode severity 10/26/2016 CARDIOVASCULAR SCREENING; LDL GOAL LESS THAN 130 11/21/2011 Insomnia 11/21/2011 Back pain 11/21/2011 HTN (hypertension) 11/21/2011 Adalgisa vaginitis Overview (11/21/2011): has had 10 years; uses fungal cream daily; diflucan trying; was on ketaconozole and nystatin for 6 months to get rid of this Fibromyalgia Resolved Problems Problem Noted Date Diagnosed Date Resolved Date ACP (advance care planning) 12/20/2016 04/11/2018 Assessment & Plan (12/20/2016 2:11 PM CDT): Advance Care Planning 12/20/2016: ACP Review of Chart / Resources Provided: Reviewed chart for advance care plan. Keiry Juarez has an advance care plan which needs to be updated. Patient states presence of new/updated ACP document. Copy requested Added by Marbella No Opioid use disorder, mild, abuse 11/09/2016 11/16/2016 Encounter for long-term opiate analgesic use 7 11/16/2016 Chronic pain syndrome 11/09/20162016 Overview (11/09/2016): Patient is followed by Theresa Asencio MD for ongoing prescription of pain medication. All refills should only be approved by this provider, or covering partner. Medication(s): suboxone. Maximum quantity per month: one month suppy Clinic visit frequency required: Q 1 month Controlled substance agreement: Encounter-Level CSA: There are no encounter-level csa. Pain Clinic evaluation in the past: Yes Date/Location: Pain management center [facility] 10/26/2016 Last [facility] website verification: done on 11/09/2016 [email or web address] MOSES (generalized anxiety disorder) 09/26/2016 03/28/2017 Immunizations Immunization Administration Dates Next Due HepB 04/06/1992,11/03/1991,10/05/1991 Influenza (High Dose) Trival ent,PF (Fluzone) 09/22/2016 Influenza Vaccine, 6+MO IM ( QUADRIVALENT W/PRESERVATIVES) 06/03/2014,06/12/2011 Zoster vaccine, live 04/30/2012 Family History Medical History Relation Comments Hypertension Father Hypertension Mother Relation Status Comments Father Maternal Grandfather Maternal Grandmother Mother Alive Paternal Grandmother Social History Tobacco Use Types Packs/Day Years Used Date Smoking Tobacco: Former Smokeless Tobacco: Never Tobacco Cessation:Counseling Given: No Alcohol Use Standard Drinks/Week Comments No 0 (1 standard drink = 0.6 oz pur e alcohol) PHQ-2 Answer Date Recorded PHQ-2 Score 0 09/10/2018 Comments No Sex and Gender Information Value Date Recorded Sex Assigned at Not on file 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 Gender Identity Not on file Sexual Orientation Not on file Occupation Industry Job Start Date Job End Date Not on file Not on file Not on file Not on file Last Filed Vital Signs Vital Sign Reading Time Taken Comments Blood Pressure 150/100 01/01/2019 12:21 PM CDT Pulse 76 01/01/2019 12:21 PM CDT Temperature 36.2 C (97.2 F) 02/13/2018 3:14 PM CDT Respiratory Rate 11 02/13/2018 3:14 PM CDT Oxygen Saturation 97% 02/13/2018 3:14 PM CDT Inhaled Oxygen Concentration - - Weight 73.9 kg (163 lb) 11/25/2018 12:17 PM CDT Height 170.2 cm (5' 7) 11/26/2017 2:37 PM CDT Body Mass Index 25.53 11/26/2017 2:37 PM CDT Plan of Treatment Not on file Insurance [address] [place] [id number] MEDICARE Advance Directives For more information, please contact: [phone] Documents on File Type Date 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
[2025-03-29 21:17] VITALS: BP 184/96; PULSE 87; RESP 20; TEMP 36.6; O2SAT 93; BMI 21.9
--- NOTE | 2025-03-29 21:27 | ED.GENADULT ---
HPI - General Adult General Chief complaint: Shortness of Breath/Dyspnea Stated complaint: breathing problems Time Seen by Provider: 03/29/25 21:14 History of Present Illness HPI narrative: Patient arrives via [facility] with c/o shortness of breath x 1 month. Patient states she screwed up her lungs a few years ago with alcohol and a supplement pill . Patient denies pain. Patient states she was at the [place] [facility] yesterday and they wouldn't help her. 79-year-old woman presenting to the emergency department with what appears to be complaint of shortness of breath. Lives in assisted living. Does spend more time talking about chronic pains. Is recommended for what sounds like back injections but she wants ablation. Pending appointment she says with [facility] in 2 days Presents here today though with concern of shortness of breath she says for maybe 3 and half weeks where she combined alcohol and create arm. She says it was a bad decision. Believe this was done in some effort to treat pain of this isn't entirely clear to me. She has had more trouble since. Does have more remote smoking history. Does not sound as though in the last few weeks she has had any imaging of her chest. I see history in record of some heart failure though she seemed uncertain of this diagnosis. Problem list shows acute heart failure with preserved ejection fraction at some point. I do note that I can hear noise in her chest on exam. She says she has been noticing that and feeling like someone is nearby breathing. Seen yesterday in area emergency department. Diagnosed with myalgia and pain. Labs at that time included basic CPK cbc which were remarkable for sodium of 131 and hemoglobin of 9.6. Frustrated that pain treatment is not given. Related Data Allergies Allergy/AdvReac Type Severity Reaction Status Date / Time amlodipine Allergy Intermediate edema Verified 03/29/25 21:36 buprenorphine Allergy Intermediate Anxiety Verified 03/29/25 21:36 naloxone Allergy Intermediate Anxiety Verified 03/29/25 21:36 amitriptyline Allergy Mild gastritis Verified 03/29/25 21:36 gabapentin Allergy Mild gi upset Verified 03/29/25 21:36 losartan Allergy Mild gi Verified 03/29/25 21:36 intolerance Penicillins Allergy Mild Rash Verified 03/29/25 21:36 amoxapine Allergy Unknown Verified 03/29/25 21:36 atropine Allergy Unknown Verified 03/29/25 21:36 bupropion Allergy Unknown Verified 03/29/25 21:36 buspirone Allergy Unknown Verified 03/29/25 21:36 cholestyramine Allergy Unknown Verified 03/29/25 21:36 ciprofloxacin Allergy Unknown Verified 03/29/25 21:36 citalopram Allergy Unknown Verified 03/29/25 21:36 clomipramine Allergy Unknown Verified 03/29/25 21:36 colesevelam Allergy Unknown Verified 03/29/25 21:36 diphenoxylate Allergy Unknown Verified 03/29/25 21:36 doxepin Allergy Unknown Verified 03/29/25 21:36 duloxetine Allergy Unknown Verified 03/29/25 21:36 escitalopram Allergy Unknown Verified 03/29/25 21:36 fluoxetine Allergy Unknown Verified 03/29/25 21:36 hydrochlorothiazide Allergy Unknown Verified 03/29/25 21:36 lorazepam Allergy Unknown Verified 03/29/25 21:36 mirtazapine Allergy Unknown Verified 03/29/25 21:36 nortriptyline Allergy Unknown Verified 03/29/25 21:36 olanzapine Allergy Unknown Verified 03/29/25 21:36 oxycodone Allergy Unknown Verified 03/29/25 21:36 quetiapine Allergy Unknown Verified 03/29/25 21:36 thioridazine Allergy Unknown Verified 03/29/25 21:36 trazodone Allergy Unknown Verified 03/29/25 21:36 acetaminophen (From [place]) AdvReac Mild acne Verified 03/29/25 21:36 cortisone AdvReac Mild lack of Verified 03/29/25 21:36 appetite cyclobenzaprine AdvReac Mild Nausea Verified 03/29/25 21:36 hydrocodone (From [place]) AdvReac Mild acne Verified 03/29/25 21:36 lidocaine AdvReac Mild changes Verified 03/29/25 21:36 taste of food Nitroimidazoles AdvReac Mild gi Verified 03/29/25 21:36 intolerance Review of Systems Status of ROS: Reports: 6 or more systems reviewed and unremarkable except as noted in History and below [facility] Medical History Connective tissue disorder ?M35.9 - Systemic involvement of connective tissue, unspecified (ICD-10) MOSES (generalized anxiety disorder) ?F41.1 - Generalized anxiety disorder (ICD-10) History of suicide attempt ?Z91.51 - Personal history of suicidal behavior (ICD-10) Somatization disorder ?F45.0 - Somatization disorder (ICD-10) Opioid use disorder, severe, dependence ?F11.20 - Opioid dependence, uncomplicated (ICD-10) Cluster B personality disorder ?F60.89 - Other specific personality disorders (ICD-10) Unspecified personality disorder ?F60.9 - Personality disorder, unspecified (ICD-10) Moderate recurrent major depression ?F33.1 - Major depressive disorder, recurrent, moderate (ICD-10) Pain management contract broken ?Z91.148 - Patient's other noncompliance with medication regimen for other reason (ICD-10) Osteoarthritis ?M19.90 - Unspecified osteoarthritis, unspecified site (ICD-10) Female genital prolapse ?N81.9 - Female genital prolapse, unspecified (ICD-10) Chronic low back pain ?M54.50 - Low back pain, unspecified (ICD-10) ?G89.29 - Other chronic pain (ICD-10) Lumbar foraminal stenosis ?M48.061 - Spinal stenosis, lumbar region without neurogenic claudication (ICD-10) Spondylolisthesis of lumbar region ?M43.16 - Spondylolisthesis, lumbar region (ICD-10) DDD (degenerative disc disease) Recurrent genital herpes simplex ?A60.00 - Herpesviral infection of urogenital system, unspecified (ICD-10) Adalgisa infection ?B37.9 - Candidiasis, unspecified (ICD-10) Thrombocytopenia ?D69.6 - Thrombocytopenia, unspecified (ICD-10) Normocytic anemia ?D64.9 - Anemia, unspecified (ICD-10) Hyponatremia ?E87.1 - Hypo-osmolality and hyponatremia (ICD-10) Acute heart failure with preserved ejection fraction ?I50.31 - Acute diastolic (congestive) heart failure (ICD-10) Essential hypertension ?I10 - Essential (primary) hypertension (ICD-10) Surgical History H/O colectomy ?Z90.49 - Acquired absence of other specified parts of digestive tract (ICD-10) H/O tubal ligation ?Z98.51 - Tubal ligation status (ICD-10) Exam Narrative: Exam Narrative: Pleasant. Partially edentulous. Breathing is not labored; breathing easily. Lungs with diffuse crepitus. Trace wheeze in the upper right lung. Heart in regular rate and rhythm. Moving all extremities without apparent difficulty. She is well-perfused. No lower extremity edema. Blood pressure noted to be moderately elevated. Const: Vital Signs, click to edit/add: Vital Signs - 24 hr 03/29/25 21:17 03/29/25 23:21 Temperature 97.8 F Pulse Rate [Right Pulse Oximeter] 87 89 Respiratory Rate 20 Blood Pressure [Le ft Upper Arm] 184/96 H Pulse Oximetry 93 89 Oxygen Delivery Me thod Room Air Room Air Documenting provider has reviewed patient's vital signs: yes Course Vital Signs Vital signs: Initial Vital Signs Temperature 97.8 F 03/29/25 21:17 Temperature Source Temporal Artery Scan 03/29/25 21:17 Pulse Rate 87 03/29/25 21:17 Respiratory Rate 20 03/29/25 21:17 Blood Pressure 184/96 H 03/29/25 21:17 Blood Pressure Mean 125 H 03/29/25 21:17 Blood Pressure Position Semi-Fowlers 03/29/25 21:17 Pulse Oximetry 93 03/29/25 21:17 Oxygen Delivery Method Room Air 03/29/25 21:17 Vital Signs Temperature 97.8 F 03/29/25 21:17 Pulse Rate 87 03/29/25 21:17 Respiratory Rate 20 03/29/25 21:17 Blood Pressure 184/96 H 03/29/25 21:17 Pulse Oximetry 93 03/29/25 21:17 Oxygen Delivery Method Room Air 03/29/25 21:17 Temperature 97.8 F 03/29/25 21:17 Pulse Rate 89 03/29/25 23:21 Respiratory Rate 20 03/29/25 21:17 Blood Pressure 184/96 H 03/29/25 21:17 Pulse Oximetry 89 03/29/25 23:21 Oxygen Delivery Method Room Air 03/29/25 23:21 Medications Administered Medications: Discontinued Medications Generic Name Dose Route Start Last Admin Trade Name Freq PRN Reason Stop Dose Admin Albuterol 2.5 mg 03/29/25 21:49 03/29/25 22:05 Albuterol Sulfate 2.5 Mg/3 Ml Vial.Neb NEB 03/29/25 21:50 2.5 mg ONCE ONE Administration Medical Decision Making MDM Narrative Medical decision making narrative: Declines recommended workup. Would like to evaluate more thoroughly for heart failure exacerbation or potential pneumonia. Isn't asking for pain management directly but complains that people are not treating her pain Perhaps there is some fibrotic change occurring here. Pneumonitis? Heart failure exacerbation. Given an albuterol nebulization. Had proposed checking labs that had not been done yesterday; this included cardiac related labs. Once these were ordered she refused to them done/drawn. Chest x-ray independently reviewed by me looks to show the trace pleural effusions in general congestion. Final Report: Indication: Dyspnea and hypoxia. Technique: Two views of the chest Comparison: None. Findings/Impression: There is cardiomegaly with pulmonary vascular congestion and suggestion of interstitial pulmonary edema. Trace bilateral pleural effusions. Patchy bilateral airspace opacification may be related to edema, however developing infectious process not definitively excluded in the appropriate clinical context. No pneumothorax. No acute osseous abnormality. Dictated by Dre Box MD @ 03/29/2025 10:35:58 PM Discussing further cares I also proposed consideration of diuresis. She declined this noting she does not want to urinate more than she already does. Accepted offer of albuterol inhaler. Did report that she had some cups at home but not clear to me that she has a nebulizer Maintained oxygen saturations throughout time in the emergency department in the low 90s. See patient discharge plan for further discussion As discussed I am providing you with an albuterol inhaler from [facility]. Tomorrow morning, please call to a clinic that would be convenient for you to begin follow-up with a primary care appointment. Otherwise I understand you have follow-up in 2 days at [facility]. Medical Records Medical records reviewed: Yes I reviewed the patient's medical records Discharge Plan Discharge Clinical Impression: Dyspnea Patient Disposition: Home, Self-Care Condition: Stable Additional Instructions: As discussed I am providing you with an albuterol inhaler from [facility]. Tomorrow morning, please call to a clinic that would be convenient for you to begin follow-up with a primary care appointment. Otherwise I understand you have follow-up in 2 days at [facility]. Follow Up/Referrals: Provider,Not a Local [Primary Care Provider, Family Practice] Stand Alone Forms: [email or web address] Info Instructions
--- NOTE | 2025-03-29 21:49 | CRLHL7_ITS ---
For Patients: As a result of the Cures Act, medical imaging exams and procedure reports are released immediately into your electronic medical record. You may view this report before your referring provider. If you have questions, please contact your health care provider. Indication: Dyspnea and hypoxia. Technique: Two views of the chest Comparison: None. Findings/Impression: There is cardiomegaly with pulmonary vascular congestion and suggestion of interstitial pulmonary edema. Trace bilateral pleural effusions. Patchy bilateral airspace opacification may be related to edema, however developing infectious process not definitively excluded in the appropriate clinical context. No pneumothorax. No acute osseous abnormality. Dictated by Dre Box MD @ 03/29/2025 10:35:58 PM (Electronically Signed)
[2025-03-29] MEDS: ALBUTEROL SULFATE 2.5 MG/3 ML VIAL.NEB NEB (22:05)
[2025-03-29 23:21] VITALS: PULSE 89; O2SAT 89
== END 2025-03-30 00:40 | disposition home or self-care (01) ==
PROVIDERS: Emergency Provider Family Medicine
DX: R06.00 Dyspnea, unspecified (principal)
CPT/HCPCS: 71046; 84484; 87631; 94640; 99284

== ENCOUNTER 2025-03-30 02:04 | Emergency (ER) | payer OTHER, SELFPAY ==
--- OUTSIDE RECORDS SUMMARY | 2025-03-30 02:07 | XMS_ITS | Clinical Summary ---
Author Organization [employer] [facility] Address [address] [place] [address] Care Team Providers Care Chip Washer Name Role Phone Pcp, No Primary Care [...] vicodin and tramadol. Patient developed acne from [place] Mixture of vicodin and tramadol. Patient developed acne from [place] Mixture of vicodin and tramadol. Patient developed acne from [place] Lidocaine Other - Describe In Comment Field [...] times daily. 40 tablet 7 4:42 PM EXPLOSIVE MAN 10/11/19 17 Active Nebulizer AccessoriesIndica tions:Pneumonia of [...] CDT - 03/28/2025 10:41 AM CDT Emergency [facility] [address] [place] [address] Nicholas Ren MD Myalgia (Primary Dx); Pain Discharge Disposition: Home Self Care 03/28/2025 Travel 03/12/2025 6:20 PM CDT - 03/12/2025 9:48 PM CDT [place] [address] [address] [address] Cr Valle PA Berndt, Daniel, MD Chronic pain of left lower extremity (Primary Dx); Chronic abdominal pain; Acute cystitis without hematuria Discharge Disposition: Home Self Care 02/01/2025 2:44 AM CDT - 02/01/2025 12:30 PM CDT Hospital Encounter [facility] [address] [place] [address] [facility] Nicolas Glynn MD Qadri, Ghaziuddin Ahmed, MBBS Murmur, heart (Primary Dx); Acute heart failure with preserved ejection fraction (HFpEF) (HC) Discharge Disposition: Against Medical Advice or Discontinued Care 01/31/2025 9:11 PM CDT - 02/01/2025 1:45 AM T [facility] [address] [address] Jaimie Wray MD Acute hypoxic respiratory failure (HC) (Primary Dx); Acute congestive heart failure, unspecified heart failure type (HC); Systolic murmur; Hyponatremia; Smoker Discharge Disposition: Home Self Care 01/31/2025 Telephone [facility] [address] [place] [address] Lorne Tatum MD Inpatient Physician Call 01/31/2025 [...] on file Legal Sex Female 6:59 AM EXPLOSIVE MAN Gender Identity Not on file Sexual Orientation [...] 2 SITES AXIAL Routine 08/12/2014 4:04 PM EXPLOSIVE MAN Post menopausal problems from Last 3 Months or Most Recently Relevant to Health Maintenance Results * (ABNORMAL) CBC WITH AUTO DIFFERENTIAL (03/28/2025 9:29 AM CDT) Only the most recent of3 resultswithin the time period is included. WHITE BLOOD COUNT 4.7 4.5 - 11.0 thou/cu mm 03/28/2025 9:35 AM [facility] RED BLOOD COUNT 3.24(L) 4.00 - 5.20 mil/cu mm 03/28/2025 9:35 AM [facility] HEMOGLOBIN 9.6(L) 12.0 - 16.0 g/dL 03/28/2025 9:35 AM [facility] HEMATOCRIT 29.5(L) 33.0 - 51.0 % 03/28/2025 9:35 AM [facility] MCV 91 80 - 100 fL 03/28/2025 9:35 AM [facility] MCH 29.6 26.0 - 34.0 pg 03/28/2025 9:35 AM [facility] MCHC 32.5 32.0 - 36.0 g/dL 03/28/2025 9:35 AM [facility] RDW 14.2 11.5 - 15.5 % 03/28/2025 9:35 AM [facility] PLATELET COUNT 224 140 - 440 thou/cu mm 03/28/2025 9:35 AM [facility] MPV 8.4 6.5 - 11.0 fL 03/28/2025 9:35 AM [facility] % NEUT 71.5 % 03/28/2025 9:35 AM [facility] % LYMPH 14.5 % 03/28/2025 9:35 AM [facility] % MONO 8.7 % 03/28/2025 9:35 AM [facility] % EOS 3.6 % 03/28/2025 9:35 AM [facility] % BASO 1.7 % 03/28/2025 9:35 AM T [facility] ABSOLUTE NEUTROPHILS 3.4 1.7 - 7.0 thou/cu mm 03/28/2025 9:35 AM T [facility] ABSOLUTE LYMPHOCYTES 0.7(L) 0.9 - 2.9 thou/cu mm 03/28/2025 9:35 AM T [facility] ABSOLUTE MONOCYTES 0.4 <0.9 thou/cu mm 03/28/2025 9:35 AM [facility] ABSOLUTE EOSINOPHILS 0.2 <0.5 thou/cu mm 03/28/2025 9:35 AM [facility] ABSOLUTE BASOPHILS 0.1 <0.3 thou/cu mm 03/28/2025 9:35 AM T [facility] Blood BLOOD SPECIMEN / Unknown Venipuncture / Unknown 03/28/2025 9:29 AM CDT 03/28/2025 9:32 AM CDT us Nicholas Ren MD HEMATOLOGY Fin al Result [facility] [address] [place] [address] * CK TOTAL (03/28/2025 9:29 AM CDT) CK,TOTAL 94 26 - 192 IU/L 03/28/2025 9:50 AM CDT [facility] Blood BLOOD SPECIMEN / Unknown Venipuncture / Unknown 03/28/2025 9:29 AM CDT 03/28/2025 9:32 AM CDT Nicholas Ren MD CHEMISTRY Fin al Result [facility] [address] [place] [address] * (ABNORMAL) BASIC METABOLIC PANEL (03/28/2025 9:29 AM CDT) Only the most recent of2 resultswithin the time period is included. SODIUM 131(L) 136 - 145 mmol/L 03/28/2025 9:50 AM [facility] POTASSIUM 4.5 3.5 - 5.1 mmol/L 03/28/2025 9:50 AM [facility] CHLORIDE 95(L) 98 - 107 mmol/L 03/28/2025 9:50 AM [facility] CO2,TOTAL 25 22 - 29 mmol/L 03/28/2025 9:50 AM [facility] ANION GAP 11 5 - 18 03/28/2025 9:50 AM [facility] GLUCOSE 120(H) 70 - 99 mg/dL 03/28/2025 9:50 AM [facility] CALCIUM 9.0 8.8 - 10.4 mg/dL 03/28/2025 9:50 AM [facility] Comment: Reference ranges for this test were updated on 07/08/2024 to reflect our healthy population more accurately. Reference range changes are not retroactively applied to results, but previous results using the same methodology can be interpreted in the context of the new reference range. BUN 16 8 - 23 mg/dL 03/28/2025 9:50 AM [facility] CREATININE 0.56 0.50 - 0.90 mg/dL 03/28/2025 9:50 AM [facility] BUN/CREAT RATIO 29(H) 10 - 20 9:50 AM [facility] eGFR >90 >90 mL/min/1. 73m2 03/28/2025 9:50 AM [facility] Comment:As of 2021, eG FR is [...] CHEMISTRY Fin al Result Performing Organization Address [facility] de Phone Number [facility] [address] [place] [address] * ETHANOL SERUM OR PLASMA (03/12/2025 8:29 PM CDT) ETHANOL <0.010 <0.010 g/dL 03/12/2025 8:54 PM CDT [facility] Blood BLOOD SPECIMEN / Unknown Venipuncture / Unknown 03/12/2025 8:29 PM CDT 03/12/2025 8:32 PM CDT us Butch Kennedy MD CHEMISTRY Final Result Performing Organization Address [facility] de Phone Number [facility] [address] [place] [phone] * LIPASE (03/12/2025 8:29 PM CDT) Pathologist [facility] LIPASE 26.1 13.0 - 60.0 IU/L 03/12/2025 8:54 PM CDT [facility] Blood BLOOD SPECIMEN / Unknown Venipuncture / Unknown 03/12/2025 8:29 PM CDT 03/12/2025 8:32 PM CDT Butch Kennedy MD CHEMISTRY Final Result Performing Organization Address [facility] de Phone Number [facility] [address] [address] * (ABNORMAL) COMP METABOLIC PANEL (03/12/2025 8:29 PM CDT) SODIUM 132(L) 136 - 145 mmol/L 03/12/2025 8:54 PM CDT [facility] POTASSIUM 4.2 3.5 - 5.1 mmol/L 03/12/2025 8:54 PM CDT [facility] CHLORIDE 96(L) 98 - 107 mmol/L 03/12/2025 8:54 PM [facility] CO2,TOTAL 24 22 - 29 mmol/L 03/12/2025 8:54 PM [facility] ANION GAP 12 5 - 18 03/12/2025 8:54 PM [facility] GLUCOSE 109(H) 70 - 99 mg/dL 03/12/2025 8:54 PM [facility] CALCIUM 9.0 8.8 - 10.4 mg/dL 03/12/2025 8:54 PM [facility] Comment: Reference ranges for this test were updated on 07/08/2024 to reflect our healthy population more accurately. Reference range changes are not retroactively applied to results, but previous results using the same methodology can be interpreted in the context of the new reference range. BUN 16 8 - 23 mg/dL 03/12/2025 8:54 PM [facility] CREATININE 0.57 0.50 - 0.90 mg/dL 03/12/2025 8:54 PM [facility] BUN/CREAT RATIO 28(H) 10 - 20 8:54 PM [facility] eGFR >90 >90 mL/min/1.7 3m2 03/12/2025 8:54 PM [facility] Comment:As of 2021, eG FR is calculated by the CKD-EPI creatinine equation without race adjustment. eGFR can be influenced by muscle mass, exercise, and diet. The reported eGFR is an estimation only and is only applicable if the renal function is stable. ALBUMIN 3.9(L) 4.0 - 4.9 g/dL 03/12/2025 8:54 PM [facility] PROTEIN,TOTAL 6.0 6.0 - 8.0 g/dL 03/12/2025 8:54 PM [facility] BILIRUBIN,TOTAL 0.7 0.0 - 1.2 mg/dL 03/12/2025 8:54 PM [facility] ALK PHOSPHATASE 57 35 - 104 IU/L 03/12/2025 8:54 PM [facility] ALT (SGPT) 15 10 - 35 IU/L 03/12/2025 8:54 PM [facility] AST (SGOT) 25 10 - 35 IU/L 03/12/2025 8:54 PM [facility] Blood BLOOD SPECIMEN / Unknown Venipuncture / Unknown 03/12/2025 8:29 PM CDT 03/12/2025 8:32 PM CDT Butch Kennedy MD CHEMISTRY Final Result Performing Organization Address [facility]/ZIP Co de Phone Number [facility] [address] [address] * (ABNORMAL) URINALYSIS MICROSCOPIC (03/12/2025 8:27 PM CDT) RBC 0-2 0-2, None Seen /HPF 03/12/2025 8:49 PM [facility] WBC 6-10(A) 0-2, 3-5, None Seen /HPF 03/12/2025 8:49 PM [facility] BACTERIA Many(A) None Seen, Rare, Few Bacteria/H PF 03/12/2025 8:49 PM [facility] EPITHELIAL CELLS Few None Seen, Few Epi/HPF 03/12/2025 8:49 PM [facility] WHITE CELL CLUMPS Present(A) (none) 03/12/2025 8:49 PM [facility] Urine URINE SPECIMEN / Unknown Non-Blood / Unknown 03/12/2025 8:27 PM CDT 03/12/2025 8:34 PM CDT us Owa Ed Triage URINE Final Result Performing Organization Address City/[facility]/ZIP Co de Phone Number [facility] [address] [address] * (ABNORMAL) UA W/ SEDIMENT EXAM REFLEXED PER CRITERIA (03/12/2025 8:27 PM CDT) COLOR Yellow Yellow Color 03/12/2025 8:38 PM CDT [facility] CLARITY Clear Clear Clarity 03/12/2025 8:38 PM [facility] SPECIFIC GRAVITY,URINE <=1.005(A) 1.010, 1.015, 1.020, 1.025 03/12/2025 8:38 PM T [facility] PH,URINE 6.5 6.0, 7.0, 8.0, 5.5, 6.5, 7.5, 8.5 03/12/2025 8:38 PM T [facility] UROBILINOGEN, QUALITATIVE Normal Normal EU/dl 03/12/2025 8:38 PM T [facility] PROTEIN, URINE Negative Negative mg/dL 03/12/2025 8:38 PM T [facility] GLUCOSE, URINE Negative Negative mg/dL 03/12/2025 8:38 PM T [facility] KETONES,URINE Negative Negative mg/dL 03/12/2025 8:38 PM T [facility] BILIRUBIN,URI NE Negative Negative 03/12/2025 8:38 PM [facility] OCCULT BLOOD,URINE Small(A) Negative 03/12/2025 8:38 PM [facility] NITRITE Positive(A) Negative 03/12/2025 8:38 PM [facility] LEUKOCYTE ESTERASE Moderate(A) Negative 03/12/2025 8:38 PM [facility] Urine URINE SPECIMEN / Unknown Non-Blood / Unknown 03/12/2025 8:27 PM CDT 03/12/2025 8:34 PM CDT us Butch Kennedy MD URINE Final Result Performing Organization Address City/State/[facility] Co de Phone Number [facility] [address] [address] * SCAN-CARDIAC STRIP (02/01/2025 7:44 AM CDT) us Scanner OTHER Final Result * SCAN-CARDIAC STRIP (02/01/2025 4:16 AM CDT) us Scanner OTHER Final Result * (ABNORMAL) TROPONIN T (HS) ONE TIME (02/01/2025 12:05 AM CDT) TROPONIN T HS 24(H) 6-10 ng/L ng/L 02/01/2025 12:31 AM [facility] Blood BLOOD SPECIMEN / Unknown Venipuncture / Unknown 02/01/2025 12:05 AM CDT 02/01/2025 12:11 AM CDT us Jaimie Wray MD CHEMISTRY Final Res ult [facility] [address] [address] * (ABNORMAL) Hepatic function panel AM (02/01/2025 12:05 AM CDT) Pathologist [facility] ALBUMIN 4.3 4.0 - 4.9 g/dL 02/01/2025 8:19 AM [facility] PROTEIN,TOTAL 6.3 6.0 - 8.0 g/dL 02/01/2025 8:19 AM [facility] BILIRUBIN,TOTAL 0.9 0.0 - 1.2 mg/dL 02/01/2025 8:19 AM [facility] BILIRUBIN,DIRECT 0.4(H) 0.0 - 0.2 mg/dL 02/01/2025 8:19 AM [facility] BILIRUBIN,INDIRE CT 0.5 0.2 - 0.8 mg/dL 02/01/2025 8:19 AM [facility] ALK PHOSPHATASE 69 35 - 104 IU/L 02/01/2025 8:19 AM [facility] ALT (SGPT) 15 10 - 35 IU/L 02/01/2025 8:19 AM [facility] AST (SGOT) 30 10 - 35 IU/L 02/01/2025 8:19 AM [facility] Blood BLOOD SPECIMEN / Unknown Venipuncture / Unknown 02/01/2025 12:05 AM CDT 02/01/2025 12:11 AM CDT us Nicolas Glynn MD CHEMISTRY Romelia l Result Performing Organization Address City/[facility]/ZIP Co de Phone Number [facility] [address] [address] * EKG 12 Lead (01/31/2025 10:32 PM CDT) Interpretation Sinus rhythm with Premature atrial complexes Possible Left atrial enlargement Left ventricular hypertrophy with repolarization abnormality ( Wilberforce product ) Anteroseptal infarct (cited on or [...] NOW QTc 485 ms BEYOND NOW P [place] 75 degrees BEYOND NOW R [place] 75 degrees BEYOND NOW T [place] 67 degrees BEYOND NOW 01/31/2025 10:3 2 PM CDT 02/01/2025 12:50 PM CDT us Jaimie Wray MD EKG ORD Final Res ult Performing Organization Address [facility] Co de Phone Number [place], [place] * XR CHEST 1 VIEW PORTABLE (01/31/2025 10:18 PM CDT) Anatomical Region Laterality Modality HEART, THORAX, CHEST Digital Rad iography us Jaimie Wray MD GENERAL IMAGING Final Res ult * (ABNORMAL) TROPONIN T (HS) ACUTE W/2HR REFLEX (01/31/2025 9:54 PM CDT) TROPONIN T HS 21(H) 6-10 ng/L ng/L 01/31/2025 10:26 PM CDT [facility] Blood BLOOD SPECIMEN / Unknown Venipuncture / Unknown 01/31/2025 9:54 PM CDT 01/31/2025 9:56 PM CDT [facility] - 01/31/2025 10:26 PM CDT hs-cTnT ([employer] [...] Jaimie Wray MD CHEMISTRY Final Res ult [facility] [address] [address] * (ABNORMAL) PRO-BNP (01/31/2025 9:54 PM CDT) PRO-BNP 1,467(H) <450 pg/mL 01/31/2025 10:30 PM CDT [facility] Blood BLOOD SPECIMEN / Unknown Venipuncture / Unknown 01/31/2025 9:54 PM CDT 01/31/2025 9:56 PM CDT [facility] - 01/31/2025 10:30 PM CDT The following [...] OUTS Final Res ult Performing Organization Address City/[facility]/ZIP Co de Phone Number [address] [address] * COVID-19 MOLECULAR (01/31/2025 9:49 PM CDT) COVID 19 [facility] MOLECULAR Not detected Not detected 01/31/2025 10:13 PM CDT [facility] TESTING LABORATORY [facility] 01/31/2025 10:13 PM CDT [facility] Comment:Specimen submitted t o [facility] for testing. Other SPECIMEN FROM NASOPHARYNGEAL STRUCTURE / Unknown Non-Blood / Unknown 01/31/2025 9:49 PM CDT 01/31/2025 9:52 PM CDT us Jaimie Wray MD MICROBIOLOGY Final Res ult Performing Organization Address [facility]/ZIP Co de Phone Number [facility] [address] [address] * (ABNORMAL) XR DXA BONE DENSITY 2 SITES (08/12/2014 4:04 PM EXPLOSIVE MAN) Anatomical Region Laterality Modality Spine, HIPS, HIPL, HIPR Bone Den sitometry Narrative 08/13/2014 2:17 PM EXPLOSIVE MAN Please see scanned document for results of this study. Procedure Note Monica Velazquez MD - 08/13/2014 Please see scanned document for results of this study. us Yinka Shabazz MD DEXA Final Result from Last 3 Months or Most Recently Relevant to Health Maintenance Insurance MEDICARE PART B HB ONLY [facility] MEDICARE PART A HB ONLY Member Subscriber Plan / Payer (Ef fective 2004-Present) Name:Keiry Juarez Member ID:[id number] Relation to Subscriber:Self Name:Keiry Juarez Subscriber ID:[id number] Payer ID:Not on file Group ID:Not on file Type:Not on file Address: ATTN: CLAIMS [address] MEDICARE PART B [place] ONLY Member Subscriber Plan / Payer (Ef fective 2004-Present) Name:Keiry Juarez Member ID:[id number] Relation to Subscriber:Self Name:Keiry Juarez Subscriber ID:[id number] Payer ID:Not on file Group ID:Not on file Type:Not on file Address: ATTN: CLAIMS [address] MEDICARE PART B [place] ONLY MEDICAID [id number] [place] [id number] [employer] Advance Directives Documents on File Type Date Recorded 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 PCP - General 10/15/19
--- OUTSIDE RECORDS SUMMARY | 2025-03-30 02:07 | XMS_ITS | Encounter Summary ---
Author Organization [place] Address [facility] [place] [address] Care Team Providers Care Emissions Technician Name Role Phone Trinidad Morris APRN BUSINESS DIVISION CHAIR Primary Care Provi alvarado Unavailable Mauro Jackman MD Primary Care Provider [phone] Sheila Osei MD Unavailable + [phone] Sheila Osei MD Unavailable + [phone] No Ref-Primary, Physician Primary Care Provider Trinidad Morris APRN, CNP Unavailable Un available Sheila Osei MD Unavailable + [phone] Nicol Feldman MD Unavailable [phone] Reason for Visit * Reason Comments Medication Refill Tramadol Encounter Details Date Type Department Care Team (Late st Contact Info) Description 12/14/[address] [place] [address] Trinidad Morris APRN CNP Medication Refill (Tramadol ) Social History Tobacco Use Types Packs/Day Years Used Date Smoking Tobacco: Former Smokeless Tobacco: Never Alcohol Use Standard Drinks/Week Comments No 0 (1 standard drink = 0.6 oz pur e alcohol) Comments No Sex and Gender Information Value Date Recorded Sex Assigned at Not on file Legal Sex Female 3:06 AM 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 Gender Identity Not on file Sexual Orientation [...] Total Score: 0 10/27/19 17 7:10 AM 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 documented as of this encounter Care Teams Emissions Technician Relationship Specialty Start Date End Date Trinidad Morris APRN BUSINESS DIVISION CHAIR PCP - General Nurse Practitioner - Adult Health 09/26/16 02/11/17 Mauro Jackman MD [address] [place] [address] PCP - General Internal Medicine 02/12/17 12/16/18 Sheila Osei MD [address] [place] [address] PCP - Assigned PCP 02/17/18 11/05/18 No Ref-Primary, Physician PCP - General 01/14/19 Sheila Osei MD [address] [place] [address] Assigned PCP 02/17/18 02/15/19 Trinidad Morris APRN BUSINESS DIVISION CHAIR Assigned PCP 02/16/19 11/29/19 Sheila Osei MD [address] [place] [address] Assigned PCP 11/30/19 02/19/21 Nicol Feldman MD XXX RETIRED 01/31/2022 XXX Assigned OBGYN Provider 06/25/20 07/17/20 documented as of this encounter
--- OUTSIDE RECORDS SUMMARY | 2025-03-30 02:07 | XMS_ITS | Clinical Summary ---
Author Organization [place] Address [address] [place] [address] Care Team Providers Care Eggs Inspector Name Role Phone No Ref-Primary, Physician Primary [...] vicodin and tramadol. Patient developed acne from [place] Mixture of vicodin and tramadol. 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 Gender Identity Not on file Sexual Orientation [...] of Treatment Not on file Insurance [address] [place] [address] MEDICARE Advance Directives For more information, please contact: [phone] Documents on File Type Date Recorded Patient Ticket Taker Expl anation Advance Directives and Living Will 04/08/2018 8:32 AM POLST 04/02/2018 Advance Directives and Living Will 01/08/2018 6:12 AM Health Care Directiv e 12/31/17 Advance Directives and Living Will 08/06/2017 1:12 PM Health Care Directiv e 01/03/17- Advance Directives and Living Will 12/27/2016 10:56 AM Health Care Directiv e 05/23/13- Care Teams Eggs Inspector Relationship Specialty Start Date End Date No Ref-Primary, Physician PCP - General 01/14/19
[2025-03-30 02:13] VITALS: BP 185/92; PULSE 90; RESP 16; TEMP 36; O2SAT 92; BMI 22.6
--- NOTE | 2025-03-30 02:30 | ED.GENADULT ---
HPI - General Adult General Chief complaint: Extremity Pain/Injury, Lower Stated complaint: left leg pain Time Seen by Provider: 03/30/25 02:30 History of Present Illness HPI narrative: patient was DC from ER to the [facility] and checked herself back in to be seen in ER again, when asked what she needs to be seen for tonight states I need a bed to sleep in since I cant get a taxi home . also has c/o of pain in L leg that has been going on for many years. states in the past tramadol has been helpful for this pain. 79-year-old woman representing to the emergency department after being just discharged from here and waiting in the [facility] anticipating a ride. Unable to find a ride from the emergency department she checks herself back in. The middle of the this appears to be the primary reason for her visit although she does complain of pain in this left leg. She notes that she wrenched her leg when she was 15. She says again how she can not get past the nurse practitioner to get further cares. She so she does not have a doctor. Is sitting there with an ice pack at her left hip. Says that years ago sounds like in 2016 she is to take pain medications but then the ?[facility]? told them stop. I used to take tramadol. Related Data Allergies Allergy/AdvReac Type Severity Reaction Status Date / Time amlodipine Allergy Intermediate edema Verified 03/29/25 21:36 buprenorphine Allergy Intermediate Anxiety Verified 03/29/25 21:36 naloxone Allergy Intermediate Anxiety Verified 03/29/25 21:36 amitriptyline Allergy Mild gastritis Verified 03/29/25 21:36 gabapentin Allergy Mild gi upset Verified 03/29/25 21:36 losartan Allergy Mild gi Verified 03/29/25 21:36 intolerance Penicillins Allergy Mild Rash Verified 03/29/25 21:36 amoxapine Allergy Unknown Verified 03/29/25 21:36 atropine Allergy Unknown Verified 03/29/25 21:36 bupropion Allergy Unknown Verified 03/29/25 21:36 buspirone Allergy Unknown Verified 03/29/25 21:36 cholestyramine Allergy Unknown Verified 03/29/25 21:36 ciprofloxacin Allergy Unknown Verified 03/29/25 21:36 citalopram Allergy Unknown Verified 03/29/25 21:36 clomipramine Allergy Unknown Verified 03/29/25 21:36 colesevelam Allergy Unknown Verified 03/29/25 21:36 diphenoxylate Allergy Unknown Verified 03/29/25 21:36 doxepin Allergy Unknown Verified 03/29/25 21:36 duloxetine Allergy Unknown Verified 03/29/25 21:36 escitalopram Allergy Unknown Verified 03/29/25 21:36 fluoxetine Allergy Unknown Verified 03/29/25 21:36 hydrochlorothiazide Allergy Unknown Verified 03/29/25 21:36 lorazepam Allergy Unknown Verified 03/29/25 21:36 mirtazapine Allergy Unknown Verified 03/29/25 21:36 nortriptyline Allergy Unknown Verified 03/29/25 21:36 olanzapine Allergy Unknown Verified 03/29/25 21:36 oxycodone Allergy Unknown Verified 03/29/25 21:36 quetiapine Allergy Unknown Verified 03/29/25 21:36 thioridazine Allergy Unknown Verified 03/29/25 21:36 trazodone Allergy Unknown Verified 03/29/25 21:36 acetaminophen (From [place]) AdvReac Mild acne Verified 03/29/25 21:36 cortisone AdvReac Mild lack of Verified 03/29/25 21:36 appetite cyclobenzaprine AdvReac Mild Nausea Verified 03/29/25 21:36 hydrocodone (From [place]) AdvReac Mild acne Verified 03/29/25 21:36 lidocaine AdvReac Mild changes Verified 03/29/25 21:36 taste of food Nitroimidazoles AdvReac Mild gi Verified 03/29/25 21:36 intolerance Review of Systems Status of ROS: Reports: 6 or more systems reviewed and unremarkable except as noted in History and below PFSH PFS Medical History Connective tissue disorder ?M35.9 - Systemic involvement of connective tissue, unspecified (ICD-10) MOSES (generalized anxiety disorder) ?F41.1 - Generalized anxiety disorder (ICD-10) History of suicide attempt ?Z91.51 - Personal history of suicidal behavior (ICD-10) Somatization disorder ?F45.0 - Somatization disorder (ICD-10) Opioid use disorder, severe, dependence ?F11.20 - Opioid dependence, uncomplicated (ICD-10) Cluster B personality disorder ?F60.89 - Other specific personality disorders (ICD-10) Unspecified personality disorder ?F60.9 - Personality disorder, unspecified (ICD-10) Moderate recurrent major depression ?F33.1 - Major depressive disorder, recurrent, moderate (ICD-10) Pain management contract broken ?Z91.148 - Patient's other noncompliance with medication regimen for other reason (ICD-10) Osteoarthritis ?M19.90 - Unspecified osteoarthritis, unspecified site (ICD-10) Female genital prolapse ?N81.9 - Female genital prolapse, unspecified (ICD-10) Chronic low back pain ?M54.50 - Low back pain, unspecified (ICD-10) ?G89.29 - Other chronic pain (ICD-10) Lumbar foraminal stenosis ?M48.061 - Spinal stenosis, lumbar region without neurogenic claudication (ICD-10) Spondylolisthesis of lumbar region ?M43.16 - Spondylolisthesis, lumbar region (ICD-10) DDD (degenerative disc disease) Recurrent genital herpes simplex ?A60.00 - Herpesviral infection of urogenital system, unspecified (ICD-10) [place]alg[place] infection ?B37.9 - Candidiasis, unspecified (ICD-10) Thrombocytopenia ?D69.6 - Thrombocytopenia, unspecified (ICD-10) Normocytic anemia ?D64.9 - Anemia, unspecified (ICD-10) Hyponatremia ?E87.1 - Hypo-osmolality and hyponatremia (ICD-10) Acute heart failure with preserved ejection fraction ?I50.31 - Acute diastolic (congestive) heart failure (ICD-10) Essential hypertension ?I10 - Essential (primary) hypertension (ICD-10) Surgical History H/O colectomy ?Z90.49 - Acquired absence of other specified parts of digestive tract (ICD-10) H/O tubal ligation ?Z98.51 - Tubal ligation status (ICD-10) Exam Narrative: Exam Narrative: NAD. Seated in the bed. Appears a little coy. Acknowledges that she needs a place to rest, sleep. Breathing easily. Has an ice pack at her left hip. Mildly tender to palpation about this. Might represent a greater trochanteric bursitis Const: Vital Signs, click to edit/add: Vital Signs - 24 hr 03/30/25 02:13 Temperature 96.8 F L Pulse Rate [Pulse Oximeter] 90 Respiratory Rate 16 Blood Pressure [Ri ght Upper Arm] 185/92 H Pulse Oximetry 92 Oxygen Delivery Me thod Room Air Documenting provider has reviewed patient's vital signs: yes Course Vital Signs Vital signs: Initial Vital Signs Temperature 96.8 F L 03/30/25 02:13 Temperature Source Temporal Artery Scan 03/30/25 02:13 Pulse Rate 90 03/30/25 02:13 Respiratory Rate 16 03/30/25 02:13 Blood Pressure 185/92 H 03/30/25 02:13 Blood Pressure Mean 123 H 03/30/25 02:13 Blood Pressure Position Sitting 03/30/25 02:13 Pulse Oximetry 92 03/30/25 02:13 Oxygen Delivery Method Room Air 03/30/25 02:13 Vital Signs Temperature 96.8 F L 03/30/25 02:13 Pulse Rate 90 03/30/25 02:13 Respiratory Rate 16 03/30/25 02:13 Blood Pressure 185/92 H 03/30/25 02:13 Pulse Oximetry 92 03/30/25 02:13 Oxygen Delivery Method Room Air 03/30/25 02:13 Temperature 96.8 F L 03/30/25 02:13 Pulse Rate 90 03/30/25 02:13 Respiratory Rate 16 03/30/25 02:13 Blood Pressure 185/92 H 03/30/25 02:13 Pulse Oximetry 92 03/30/25 02:13 Oxygen Delivery Method Room Air 03/30/25 02:13 Medications Administered Medications: Discontinued Medications Generic Name Dose Route Start Last Admin Trade Name Freq PRN Reason Stop Dose Admin Ketorolac Tromethamine 60 mg 03/30/25 02:40 03/30/25 02:51 Ketorolac 60 Mg/2 Ml Inj IM 03/30/25 02:41 60 mg ONCE ONE Administration Medical Decision Making MDM Narrative Medical decision making narrative: Has limited insight I think into pain management issues. Has declined other cares. Has follow-up elsewhere for pain concerns. Has an underlying history of somatization disorder. Numerous intolerances to medications. I offered a dose of ketorolac. Injected with IM ketorolac. Rested in the emergency department. See patient discharge plan for further discussion As discussed, please make an appointment with primary care as soon as possible. Otherwise follow-up with [facility] in 2 days Medical Records Medical records reviewed: Yes I reviewed the patient's medical records Discharge Plan Discharge Clinical Impression: Chronic leg pain Patient Disposition: Home, Self-Care Condition: Stable Additional Instructions: As discussed, please make an appointment with primary care as soon as possible. Otherwise follow-up with [facility] in 2 days Follow Up/Referrals: Provider,Not a Local [Primary Care Provider, Family Practice] Stand Alone Forms: [employer] Info Instructions
== END 2025-03-30 03:37 | disposition home or self-care (01) ==
PROVIDERS: Emergency Provider Family Medicine
DX: M79.605 Pain in left leg (principal); G89.29 Other chronic pain
CPT/HCPCS: 96372; 99283; 99284; J1885

== ENCOUNTER 2025-05-08 09:34 | Emergency (ER) | payer OTHER, SELFPAY ==
[2025-05-08] VITALS (7 sets, daily range): BP systolic 165; BP diastolic 81; PULSE 86–91; RESP 17–53; TEMP 37.3; O2SAT 82–92; BMI 24.7
--- OUTSIDE RECORDS SUMMARY | 2025-05-08 09:39 | XMS_ITS | Clinical Summary ---
Author Organization [facility] Address [address] [place] [id number] Care Team Providers Care Flight Purser Name Role Phone Rosalva aVllecillo PA-C Primary Care Provider [phone] Allergies Active Allergy Reactions Criticality Noted Date [...] Other reaction(s): Other (see comments) Buprenorphine-Naloxone Diabetes, Exacerbation,Emot ional Disturbance,Anxie ty,Other - Describe In Comment Field 11/19/2016 Other reaction(s): Diabetes, Exacerbation, Emotional Disturbance Other reaction(s): Diabetes, Exacerbation, Emotional Disturbance Bupropion Other - Describe In Comment Field 02/06/2012 Other reaction(s): Other (see comments) Buspirone Other - Describe In Comment Field 09/26/2016 Other reaction(s): Other (see comments) Cephalosporins *Unknown 09/05/2024 Cholestyramine Other - Describe In Comment Field [...] 05/29/2013 Other reaction(s): Other (see comments) Duloxetine Hcl *Unknown 09/26/2016 Escitalopram Other - Describe In Comment Field [...] vicodin and tramadol. Patient developed acne from [place] Mixture of vicodin and tramadol. Patient developed acne from [place] Mixture of vicodin and tramadol. Patient developed acne from [place] Lorazepam Other - Describe In Comment Field [...] Field 02/06/2012 Other reaction(s): Other (see comments) Sulfa (Sulfonamide Antibiotics) *Unknown 09/05/2024 Thioridazine Other - Describe In Comment Field 02/06/2012 Other reaction(s): Other (see comments) Trazodone Other - Describe In Comment Field 02/06/2012 Other reaction(s): Other (see comments) Zolpidem Other - Describe In Comment Field 02/06/2012 Other reaction(s): Other (see comments) Medications carvediloL (COREG) 6.25 mg tabletIndications :Systolic murmur,Severe aortic valve stenosis Take 1 Tablet (6.25 mg) by mouth two times daily with meals. 60 Tablet 04/23/20 25 025 Active furosemide (LASIX) 40 mg tabletIndications :Acute on chronic congestive heart failure, unspecified heart failure type (HC) Take 1 Tablet (40 mg) by mouth once daily in the morning. 30 Tablet 04/24/20 25 025 Active lidocaine 4 % topical patchIndications: Pain of lower extremity, unspecified laterality Apply to intact skin to cover most painful area for max 12hr per 24hr period. Remove previous patch before adding new patch. 30 Patch 04/24/20 25 Active oxygen-air delivery systems (HOME OXYGEN)Indication s:Acute hypoxic respiratory failure (HC),Acute on chronic congestive heart failure, unspecified heart failure type (HC) Oxygen for home use with bubbler/humidity as needed for patient comfort. Liters per minute: 1 per nasal cannula. Frequency of use: Activity with portability. Length of need: 99 Months. 1 Each 04/23/20 25 Active Digestive Enzymes capsuleIndication s:Generalized abdominal discomfort Take 1 capsule by mouth 3 times daily before meals. 0 07/07/20 13 025 Discontin ued(*Med complete/ Regimen complete/ Level of care change) cholecalciferol (VITAMIN D-3) 2,000 unit capsule Take 1 capsule by mouth once daily. 0 07/14/20 13 025 Discontin ued(*Med complete/ Regimen complete/ Level of care change) lactobacillus rhamnosus, GG, (CULTURELLE PROBIOTICS) 10 billion cell -200 mg capsule Take 1 Cap by mouth once daily. 0 07/14/20 13 025 Discontin ued(*Med complete/ Regimen complete/ Level of care change) Magnesium 200 mg tab Take 2 tablets by mouth 3 times daily. 0 07/29/20 13 025 Discontin ued(*Med complete/ Regimen complete/ Level of care change) omega-3 fatty acids-vitamin E (FISH OIL) 1,000 mg cap Take 1 capsule by mouth 2 times daily. 0 07/29/20 13 025 Discontin ued(*Med complete/ Regimen complete/ Level of care change) Acetylcysteine 600 mg cap Take 600 mg by mouth once daily. 0 07/29/20 13 025 Discontin ued(*Med complete/ Regimen complete/ Level of care change) Glutamine (L-GLUTAMINE) 500 mg tab Take 500 mg by mouth once daily if needed. 0 04/02/20 15 025 Discontin ued(*Med complete/ Regimen complete/ Level of care change) camphor-menthol (TIGER BALM) oint Apply to affected areas as needed 0 04/02/20 15 025 Discontin ued(*Med complete/ Regimen complete/ Level of care change) benzoyl peroxide 5% 5 % gel Apply topically to affected area(s) once daily. 0 04/02/20 15 025 Discontin ued(*Med complete/ Regimen complete/ Level of care change) benzoyl peroxide 10% (BENZAC-W WASH) 10 % external wash Apply topically to affected area(s) 2 times daily. 1 Bottle 0 04/02/20 15 025 Discontin ued(*Med complete/ Regimen complete/ Level of care change) Milk Thistle 150 mg cap Take 150 mg by mouth once daily. 0 04/02/20 15 025 Discontin ued(*Med complete/ Regimen complete/ Level of care change) Valerian Root 250 mg cap Take 250 mg by mouth at bedtime if needed. 0 04/02/20 15 025 Discontin ued(*Med complete/ Regimen complete/ Level of care change) medication order composer YUNIOR 500mg 1 tab by mouth three times daily 0 07/19/20 15 025 Discontin ued(*Med complete/ Regimen complete/ Level of care change) Cranberry 400 mg capsule Take 1 capsule by mouth 3 times daily. 0 08/17/20 15 025 Discontin ued(*Med complete/ Regimen complete/ Level of care change) capsaicin (ZOSTRIX) 0.025 % creamIndications: Degeneration of L4-L5 intervertebral disc,Low back pain radiating to left leg apply to affected areas as needed for pain. 0 09/28/19 16 025 Discontin ued(*Med complete/ Regimen complete/ Level of care change) lysine (L-LYSINE) 500 mg tab Take 2 tablets by mouth 3 times daily. 0 01/24/20 16 025 Discontin ued(*Med complete/ Regimen complete/ Level of care change) Melatonin 5 mg tab Take 2 tablets by mouth at bedtime. 0 01/24/20 16 025 Discontin ued(*Med complete/ Regimen complete/ Level of care change) multivitamin (MVI) tablet Take 2 tab po twice daily 0 01/24/20 16 025 Discontin ued(*Med complete/ Regimen complete/ Level of care change) medication order composer Patient taking Inflammacore. Use at least 1 scoop daily. 0 04/28/20 16 025 Discontin ued(*Med complete/ Regimen complete/ Level of care change) carvedilol (COREG) 6.25 mg tabletIndications :HTN (hypertension) Take 3 tablets by mouth 2 times daily with meals. 90 tablet 1 09/04/19 17 025 Discontin ued(*Med complete/ Regimen complete/ Level of care change) ciclopirox solution (LOPROX) 8 % solutionIndicatio ns:Nail fungus Apply topically to affected area(s) at bedtime. On fingernails at bedtime 1 Bottle 09/13/19 17 025 Discontin ued(*Med complete/ Regimen complete/ Level of care change) acetaminophen (TYLENOL) 325 mg tabletIndications :Chronic pain syndrome Take 1-2 tablets by mouth every 4 hours if needed. Max acetaminophen dose: 4000mg in 24 hrs. 0 09/20/19 17 025 Discontin ued(*Med complete/ Regimen complete/ Level of care change) loperamide (IMODIUM) 2 mg capsuleIndication s:Loose stools Take 4mg by mouth with 1st loose stool, then 2mg with each subsequent loose stool. Max 16 mg in 24 hrs 0 09/20/19 17 025 Discontin ued(*Med complete/ Regimen complete/ Level of care change) pyridoxine, vitamin B6, (VITAMIN B6) 50 mg tabletIndications :Healthcare maintenance Take 5 tablets by mouth once daily. 09/20/19 17 025 Discontin ued(*Med complete/ Regimen complete/ Level of care change) lisinopril (PRINIVIL; ZESTRIL) 20 mg tabletIndications :Essential hypertension Take 1 tablet by mouth 2 times daily. 180 tablet 09/22/19 025 Discontin ued(*Med complete/ Regimen complete/ Level of care change) guaiFENesin (MUCINEX) 600 mg Extended-Release tabletIndications :Pneumonia of right lower lobe due to infectious organism Take 1 tablet by mouth 2 times daily. 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 Length of need: 10 days 1 Kit 10/11/19 17 025 Discontin ued(*Med complete/ Regimen complete/ Level of care change) erythromycin ophthalmic ointment 0.5%Indications:B lepharitis, unspecified laterality, unspecified type Place 1 Strip into the eye(s) 6 times daily. 3.5 g 3 7 4:05 PM CDT 11/16/19 17 025 Discontin ued(*Med complete/ Regimen complete/ Level of care change) fluconazole (DIFLUCAN) 150 mg tabletIndications :Serg infection 150mg PO q72 hours x2 2 tablet 03/29/20 18 025 Discontin ued(*Med complete/ Regimen complete/ Level of care change) benzonatate (TESSALON) 200 mg capsuleIndication s:Acute viral bronchitis Take 1 capsule by mouth 3 times daily if needed for Cough. 20 capsule 10/22/19 20 025 Discontin ued(*Med complete/ Regimen complete/ Level of care change) albuterol (PROVENTIL) 0.083 % neb solutionIndicatio ns:Acute viral bronchitis Inhale 3 mL via a nebulizer every 6 hours if needed. 1 box 10/22/19 20 025 Discontin ued(*Med complete/ Regimen complete/ Level of care change) traMADoL (ULTRAM) 50 mg tabletIndications :Chronic pain of left lower extremity,Chronic abdominal pain Take 1 Tablet (50 mg) by mouth every 8 hours if needed for Pain. 6 Tablet 03/12/20 25 025 Discontin ued(*Med complete/ Regimen complete/ Level of care change) Active Problems Problem Noted Date Diagnosed Date Serg vaginitis 04/21/2025 Overview (04/21/2025): has had 10 years; uses fungal cream daily; diflucan trying; was on ketaconozole and nystatin for 6 months to get rid of this Alcohol abuse 04/21/2025 Normocytic anemia 02/01/2025 Thrombocytopenia 02/01/2025 Hyponatremia 02/01/2025 Acute heart failure with pre served ejection fraction (HFpEF) 02/01/2025 Uterine prolapse 04/22/2024 Overview (04/21/2025): She was fit with a size 7 ring pessary with support for management of symptomatic pelvic organ prolapse. She will trial the device over the next 2 weeks and I will plan to see her back for follow-up in 2 weeks. She plans to wear the device continuously with follow-up visits every 3-4 months in clinic for cleaning. 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 Cluster B personality disorder was first noted on 09/16/2016, and unspecified personality disorder was first noted on 12/12/2012. The patient's personality disorder contributed to difficulties in maintaining a primary care provider. 09/10/18: TSH 1.4 mIU/L 01/31/25: Glu 138 mg/dL Recent encounter dx: 12/12/23: [facility] [place], [place] (from [facility]) 11/30/23: Office Visit - [facility] Department of Internal Medicine in [place], [place] (from [facility]) 01/11/17: Appointment - [facility] 08/21/16: Appointment - [email or web address] 07/21/16: Appointment - [facility] Recent notes: 02/01/25: H&P - HISTORY & PHYSICAL by Nicolas Glynn MD ... [+] ? Cluster B personality disorder (HC) 09/16/2016 ... [+] ? Unspecified personality disorder 12/12/2012 12/12/23: H&P Notes - H&P by Rosalva Vallecillo P.A.-C. (from [facility]) ... [+] Diagnosis Date Anxiety 12/27/2016 Atrophy Vagina Due To Estrogen Deficiency Candidiasis 12/27/2016 Chronic Pain Syndrome 02/06/2012 Cystocele Depression Major Recurrent (HCC) 12/27/2016 Diarrhea 01/04/2017 Dumping Syndrome 01/25/2017 Fibromyalgia 02/06/2012 Hypertension Essential Primary 12/27/2016 Hypokalemia 10/10/2016 Hyponatremia 10/08/2016 Osteoarthritis 02/06/2012 Overgrowth Bacterial Sm... ... [+] #4 Borderline Personality Disorder (HCC) ... [+] #7 Personality Disorder (HCC) 10/04/22: ED Provider Note by Linwood Harper MD ... [-] Keiry Juarez is a 77 y.o. female with a medical history of HTN, DDD, cluster B personality disorder, and opioid use disorder who presents to the Emergency Department by law enforcement for evaluation of elevated blood pressure and back pain. ... [-] Unspecified personality disorder ... [+] Cluster B personality disorder (HC) 05/17/19: ED Provider Note by RIO Prince ... [+] She has a history with having difficulty keeping her primary care provider due to her problems with chronic pain and personality disorder. 11/29/16: Progress Notes - Nursing Notes by Mariia Carrero OD ... [+] ? Unspecified personality disorder F60.9 ... [+] ? Cluster B personality disorder F60.9 Mixed anxiety depressive disorder 12/27/2016 Overview (04/21/2025): Depression Anxiety Other specified counseling 12/20/2016 Overview (04/21/2025): Last Assessment & Plan: Advance Care Planning 12/20/2016: ACP Review of Chart / Resources Provided: Reviewed chart for advance care plan. Keiry Juarez has an advance care plan which needs to be updated. Patient states presence of new/updated ACP document. Copy requested Added by Marbella No Somatization disorder 10/26/2016 Osteoarthritis 10/26/2016 Chronic low back pain 10/26/2016 Chronic left-sided low back pain with left-sided sciatica 10/26/2016 Osteoarthritis 10/26/2016 Somatization disorder 10/26/2016 Cluster B personality disorder 09/16/2016 Opioid use disorder, severe, dependence 09/16/19 17 Opioid dependence 09/16/2016 Pain management contract broken 09/07/2016 Overview (09/07/2016): [...] Humza Trevino MD .................... 09/07/2016 5:41 PM Noncompliance with medication regimen 09/07/2016 Overview (04/21/2025): Patient was told she could have a [...] early refills. No refills with other providers. Other general medical examin ation for administrative purposes 04/13/2016 Overview (04/21/2025): Patient will limit her tramadol to 6 tablets a day. No early refills. No refills with other providers. Chronic pain disorder 01/11/2016 Bilateral primary osteoarthritis of knee 016 Osteoarthritis of knee 12/30/2015 Serg infection 10/21/2015 DDD (degenerative disc disease), thoracic 2014 DDD (degenerative disc disease), cervical 2014 Degeneration of intervertebral disc of cervical region 08/31/2015 Degeneration of intervertebral disc of thoracic region 08/31/2015 DDD (degenerative disc disease), lumbar 09/07/19 15 Spondylolisthesis of lumbar region 09/07/2014 Lumbar foraminal stenosis 09/07/2014 Degeneration of intervertebral disc of lumbar re gion 09/07/2014 Spondylolisthesis 09/07/2014 Pain management contract agreement 04/27/2013 Overview (04/13/2016): Patient doesn't take more than 6 tramadol per day. No early refills. Medication is for connective tissue disorder and chronic low back pain Recurrent genital herpes simplex 12/19/2012 Herpes genitalis 12/19/2012 Unspecified personality disorder 12/12/2012 Encounter for screening for cardiovascular disor ders 11/21/2011 Insomnia 11/21/2011 Thoracic back pain 11/21/2011 Primary hypertension 11/21/2011 Overview (04/21/2025): Hypertension (HTN) NOS Moderate recurrent major depression 07/13/2011 Connective tissue disorder 07/13/2011 Disorder of connective tissue 07/13/2011 Episode of recurrent major depressive disorder 1 09/12/2010 Unspecified essential hypertension Chronic pain syndrome H/O: depression Resolved Problems Problem Noted Date Diagnosed Date Resolved Date Pneumonia 10/10/2016 02/01/2025 Hypokalemia 10/10/2016 02/01/2025 Hyponatremia 10/10/2016 02/01/2025 Pain medication agreement 10/15/2012 Adjustment disorder with mix ed anxiety and depressed mood 10/10/2012 09/01/2015 Unspecified essential hypertension 07/13/2011 02/01/2025 Encounters Date Type Department Care Team Description 05/04/2025 9:07 AM CDT - 05/04/2025 11:[address] [facility] [address] [place] [id number] Melissa Rios DO Hip pain, unspecified laterality (Primary Dx); Chronic left hip pain Discharge Disposition: Home Self Care 05/04/2025 Travel 04/22/2025 Orders Only [facility] Scanner 1 scan: (1-Ord) [facility], 04/22/2025 04/21/2025 9:22 AM CDT - 04/23/2025 1:09 PM CDT Hospital Encounter [address] [address] Sabrina Jimenez PA Bauman, Vince Cleaning MD Hospitalist, Britt Smith, MOISES Reynolds Acute hypoxic respiratory failure (HC) (Primary Dx); Systolic murmur; Acute on chronic congestive heart failure, unspecified heart failure type (HC); Severe aortic valve stenosis; Pain of lower extremity, unspecified laterality Discharge Disposition: Half-Way Facility 04/21/2025 Travel 03/28/2025 9:14 AM CDT - 03/28/2025 10:41 AM CDT Emergency [address] [address] Nicholas Ren MD Myalgia (Primary Dx); Pain Discharge Disposition: Home Self Care 03/28/2025 Travel 03/12/2025 6:20 PM CDT - 03/12/2025 9:48 PM CDT Emergency [address] [address] Cr Valle PA Berndt, Daniel, MD Chronic pain of left lower extremity (Primary Dx); Chronic abdominal pain; Acute cystitis without hematuria Discharge Disposition: Home Self Care from Last 3 Months Immunizations Immunization Administration [...] drink = 0.6 oz pur e alcohol) Social Connections Answer Date Recorded Do you often feel lonely or isolated from those around you? 0 04/21/2025 Financial Resource Strain Answer Date R ecorded Difficulty of Paying Living Expenses 3 04/21/2025 Difficulty of Paying Living Expenses Not on file 04/21/2025 Food Insecurity Answer Date Recorded Do you worry your food will run out before you are able to buy more? 1 04/21/2025 Transportation Needs Answer Date Record ed Does lack of transportation keep you from medica l appointments? 1 04/21/2025 Does lack of transportation keep you from work, meetings or getting things that you need? 1 04/21/2025 Housing Stability Answer Date Recorded What is your housing situation today? 1 04/21/2025 Interpersonal Safety Answer Date Record ed Are you being hit, kicked, p ushed or yelled at (see row info)? No 05/04/2025 Interpersonal Safety Abuse 12 - 18 Not on file 05/04/2025 Interpersonal Safety Ambulatory Vulnerability No t on file 05/04/2025 Utilities Answer Date Recorded Do you have trouble paying f or utilities (for example, heat, electricity, water, phone)? 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 Gender Identity Not on file Sexual Orientation Not on file Occupation Industry Job Start Date Job End Date Retired Not on file Not on file Not on file Obstetrics History Last Filed Vital Signs Vital Sign Reading Time Taken Comments Blood Pressure 186/97 05/04/2025 8:47 PM CDT Pulse 86 05/04/2025 11:05 PM CDT Temperature 36.7 C (98 F) 05/04/2025 8:47 PM CDT Respiratory Rate 22 05/04/2025 8:47 PM CDT Oxygen Saturation 92% 05/04/2025 11:05 PM CDT Inhaled Oxygen Concentration - - Weight 64 kg (141 lb) 05/04/2025 9:12 AM CDT Height 172.7 cm (5' 8) 05/04/2025 9:11 AM CDT Body Mass Index 21.44 05/04/2025 9:11 AM CDT Plan of Treatment Health Maintenance [...] 11/15/2011 (Declined) COVID-19 vaccine series ( season) 2025 Influenza Vaccine (#1) 2025 7, 06/03/2014, 06/12/2011 Hepatitis B series for 19+ Completed 04/06, 11/03/1991, 10/05/1991 DEXA/DXA scan for age 65+ Completed 2013, 12/22/2011 (Declined) Procedures Procedure Name Priority Date/Time Associated Diagnosis Comments MAGNESIUM Early AM 04/23/2025 5:18 AM CDT POTASSIUM Early AM 04/23/2025 5:18 AM CDT SCAN-CARDIAC STRIP 04/23/2025 12 :45 AM CDT HEMOGLOBIN Early AM 04/22/2025 5:11 AM CDT WHITE BLOOD COUNT Early AM 04/22/2025 5:1 1 AM CDT MAGNESIUM Early AM 04/22/2025 5:11 AM CDT CREATININE Early AM 04/22/2025 5:11 AM CDT POTASSIUM Early AM 04/22/2025 5:11 AM CDT SODIUM Early AM 04/22/2025 5:11 AM CDT SCAN-CARDIAC STRIP 04/22/2025 12 :58 AM CDT SCAN-DIAGNOSTIC REPORT 04/22/2025 12:00 AM CDT SCAN-CARDIAC STRIP 04/21/2025 3: 08 PM CDT INFLUENZA A/B PCR STAT 04/21/2025 10: 18 AM CDT COVID-19 MOLECULAR STAT 04/21/2025 10 :18 AM CDT XR CHEST 2 VIEWS PA AND LATERAL STAT 04/21/2025 9:55 AM CDT MAGNESIUM HAILY 04/21/2025 9:46 AM CDT LACTATE VENOUS STAT 04/21/2025 9:46 AM CDT PRO-BNP STAT 04/21/2025 9:46 AM CDT CBC WITH AUTO DIFFERENTIAL STAT 04/21/2025 9:46 AM CDT COMP METABOLIC PANEL STAT 04/21/2025 9:46 AM CDT TROPONIN T (HS) ONE TIME STAT 04/21/2025 9:46 AM CDT CBC WITH AUTO DIFFERENTIAL STAT 04/21/2025 9:46 AM CDT EKG 12 LEAD STAT 04/21/2025 9:31 AM CDT CBC WITH AUTO DIFFERENTIAL STAT [...] PER CRITERIA STAT 03/12/2025 8:27 PM CDT XR DXA BONE DENSITY 2 SITES AXIAL Routine 08/12/2014 4:04 PM PURCHASING AND FISCAL CLERK Post menopausal problems from Last 3 Months or Most Recently Relevant to Health Maintenance Results * POTASSIUM (04/23/2025 5:18 AM CDT) Only the most recent of2 resultswithin the time period is included. POTASSIUM 3.8 3.5 - 5.1 mmol/L 04/23/2025 5:44 AM CDT [facility] Blood BLOOD SPECIMEN / Unknown Venipuncture / Unknown 04/23/2025 5:18 AM CDT 04/23/2025 5:23 AM CDT us Sue Fajardo NP CHEMISTRY Romelia l Result Performing Organization Address City/[facility]/ZIP Co de Phone Number [address] [phone] * MAGNESIUM (04/23/2025 5:18 AM CDT) Only the most recent of3 resultswithin the time period is included. MAGNESIUM 1.8 1.6 - 2.4 mg/dL 04/23/2025 5:44 AM CDT [facility] Blood BLOOD SPECIMEN / Unknown Venipuncture / Unknown 04/23/2025 5:18 AM CDT 04/23/2025 5:23 AM CDT us Sue Fajardo TURN OUT CHEMISTRY Romelia l Result Performing Organization Address [facility] Co de Phone Number [address] [phone] * SCAN-CARDIAC STRIP (04/23/2025 12:45 AM CDT) Scanner OTHER Final Result * WHITE BLOOD COUNT (04/22/2025 5:11 AM CDT) WHITE BLOOD COUNT 4.7 4.5 - 11.0 thou/cu mm 04/22/2025 5:36 AM CDT [facility] Blood BLOOD SPECIMEN / Unknown Venipuncture / Unknown 04/22/2025 5:11 AM CDT 04/22/2025 5:28 AM CDT Cristy NASCIMENTOBS HEMATOLOGY Final Result Performing Organization Address City/[facility]/ZIP Co de Phone Number [address] [phone] * (ABNORMAL) HEMOGLOBIN (04/22/2025 5:11 AM CDT) HEMOGLOBIN 8.0(L) 12.0 - 16.0 g/dL 04/22/2025 5:36 AM CDT [facility] MCV 97 80 - 100 fL 04/22/2025 5:36 AM CDT [facility] Blood BLOOD SPECIMEN / Unknown Venipuncture / Unknown 04/22/2025 5:11 AM CDT 04/22/2025 5:28 AM CDT Cristy DE LEON HEMATOLOGY Final Result [facility] [address] [phone] * (ABNORMAL) SODIUM (04/22/2025 5:11 AM CDT) SODIUM 130(L) 136 - 145 mmol/L 04/22/2025 5:51 AM CDT [facility] Blood BLOOD SPECIMEN / Unknown Venipuncture / Unknown 04/22/2025 5:11 AM CDT 04/22/2025 5:28 AM CDT Cristy DE LEON CHEMISTRY Final Result Performing Organization Address City/[facility]/ZIP Co de Phone Number [facility] [address] [place] [phone] * CREATININE (04/22/2025 5:11 AM CDT) eGFR >90 >90 mL/min/1.7 3m2 04/22/2025 5:51 AM T [facility] Comment:As of 2021, eG FR is calculated by the CKD-EPI creatinine equation without race adjustment. eGFR can be influenced by muscle mass, exercise, and diet. The reported eGFR is an estimation only and is only applicable if the renal function is stable. CREATININE 0.54 0.50 - 0.90 mg/dL 04/22/2025 5:51 AM CDT [facility] Blood BLOOD SPECIMEN / Unknown Venipuncture / Unknown 04/22/2025 5:11 AM CDT 04/22/2025 5:28 AM CDT us Cristy DE LEON CHEMISTRY Final Result Performing Organization Address [facility] [facility]/ZIP Co de Phone Number [address] [address] * SCAN-CARDIAC STRIP (04/22/2025 12:58 AM CDT) us Scanner OTHER Final Result * SCAN-DIAGNOSTIC REPORT (04/22/2025 12:00 AM CDT) us Scanner OTHER Final Result * SCAN-CARDIAC STRIP (04/21/2025 3:08 PM CDT) us Scanner OTHER Final Result * COVID-19 MOLECULAR (04/21/2025 10:18 AM CDT) Pathologist [facility] COVID 19 [place]INA MOLECULAR Not detected Not detected 04/21/2025 10:47 AM CDT [facility] TESTING LABORATORY [facility] Laboratory 04/21/2025 10:47 AM CDT [facility] Comment:Specimen submitted t o [facility] Laboratory for testing. Other SPECIMEN FROM NASOPHARYNGEAL STRUCTURE / Unknown Non-Blood / Unknown 04/21/2025 10:18 AM CDT 04/21/2025 10:23 AM CDT us Sabrina Jimenez PA MICROBIOLOGY Final R esult Performing Organization Address [facility]/ZIP Co de Phone Number [address] [address] * INFLUENZA A/B PCR (04/21/2025 10:18 AM CDT) Pathologist [facility] INFLUENZA A PCR NOT Detected 04/21/2025 10:47 AM CDT [facility] INFLUENZA B PCR NOT Detected 04/21/2025 10:47 AM CDT [facility] Other SPECIMEN FROM NASOPHARYNGEAL STRUCTURE / Unknown Non-Blood / Unknown 04/21/2025 10:18 AM CDT 04/21/2025 10:23 AM CDT Sabrina PATE MICROBIOLOGY Final R esult [facility] [address] [address] * XR CHEST 2 VIEWS PA AND LATERAL (04/21/2025 9:55 AM CDT) Anatomical Region Laterality Modality CHEST, THORAX, Lung, HEART Digit al Radiography Sabrina PATE GENERAL IMAGING Final R esult * (ABNORMAL) TROPONIN T ONE TIME (04/21/2025 9:46 AM CDT) TROPONIN T HS 26(H) 6-10 ng/L ng/L 04/21/2025 10:15 AM CDT [facility] Blood BLOOD SPECIMEN / Unknown Venipuncture / Unknown 04/21/2025 9:46 AM CDT 04/21/2025 9:49 AM CDT Narrative [facility] - 04/21/2025 10:15 AM CDT hs-cTnT (Elecsys Troponin T Gen 5) [...] low risk in emergency department patient population. Sabrina PATE CHEMISTRY Final R esult [facility] [address] [address] * (ABNORMAL) CBC WITH AUTO DIFFERENTIAL (04/21/2025 9:46 AM T) Only the most recent of3 resultswithin the time period is included. [facility] WHITE BLOOD COUNT 6.1 4.5 - 11.0 thou/cu mm 04/21/2025 9:56 AM [facility] RED BLOOD COUNT 2.74(L) 4.00 - 5.20 mil/cu mm 04/21/2025 9:56 AM [facility] HEMOGLOBIN 8.2(L) 12.0 - 16.0 g/dL 04/21/2025 9:56 AM [facility] HEMATOCRIT 25.7(L) 33.0 - 51.0 % 04/21/2025 9:56 AM [facility] MCV 94 80 - 100 fL 04/21/2025 9:56 AM [facility] MCH 29.9 26.0 - 34.0 pg 04/21/2025 9:56 AM [facility] MCHC 31.9(L) 32.0 - 36.0 g/dL 04/21/2025 9:56 AM [facility] RDW 16.9(H) 11.5 - 15.5 % 04/21/2025 9:56 AM [facility] PLATELET COUNT 178 140 - 440 thou/cu mm 04/21/2025 9:56 AM [facility] MPV 8.5 6.5 - 11.0 fL 04/21/2025 9:56 AM [facility] % NEUT 78.9 % 04/21/2025 9:56 AM [facility] % LYMPH 14.5 % 04/21/2025 9:56 AM [facility] % MONO 5.4 % 04/21/2025 9:56 AM [facility] % EOS 0.5 % 04/21/2025 9:56 AM [facility] % BASO 0.7 % 04/21/2025 9:56 AM [facility] ABSOLUTE NEUTROPHILS 4.9 1.7 - 7.0 thou/cu mm 04/21/2025 9:56 AM [facility] ABSOLUTE LYMPHOCYTES 0.9 0.9 - 2.9 thou/cu mm 04/21/2025 9:56 AM [facility] ABSOLUTE MONOCYTES 0.3 <0.9 thou/cu mm 04/21/2025 9:56 AM [facility] ABSOLUTE EOSINOPHILS 0.0 <0.5 thou/cu mm 04/21/2025 9:56 AM [facility] ABSOLUTE BASOPHILS 0.0 <0.3 thou/cu mm 04/21/2025 9:56 AM [facility] Blood BLOOD SPECIMEN / Unknown Venipuncture / Unknown 04/21/2025 9:46 AM [facility] 04/21/2025 9:49 AM [facility] us Sabrina Jimenez PA HEMATOLOGY Final R esult [address] [address] * LACTATE VENOUS (04/21/2025 9:46 AM CDT) LACTATE,VENOUS 1.1 0.5 - 2.0 mmol/L 04/21/2025 10:53 AM CDT [facility] Blood BLOOD SPECIMEN / Unknown Add On / Unknown 04/21/2025 9:46 AM CDT 04/21/2025 10:41 AM CDT us Sabrina Jimenez PA CHEMISTRY Final R esult [address] [address] * (ABNORMAL) PRO-BNP (04/21/2025 9:46 AM CDT) PRO-BNP 2,699(H) <450 pg/mL 04/21/2025 10:23 AM CDT [facility] Blood BLOOD SPECIMEN / Unknown Venipuncture / Unknown 04/21/2025 9:46 AM CDT 04/21/2025 9:49 AM CDT Narrative [facility] - 04/21/2025 10:23 AM CDT The following cut-points have been suggested [...] 72% for acute congestive heart failure. us Vince Wyatt MD SEND OUTS Final R esult [facility] [address] [address] * (ABNORMAL) COMP METABOLIC PANEL (04/21/2025 9:46 AM CDT) Only the most recent of2 resultswithin the time period is included. SODIUM 130(L) 136 - 145 mmol/L 04/21/2025 10:15 AM [facility] POTASSIUM 4.0 3.5 - 5.1 mmol/L 04/21/2025 10:15 AM [facility] CHLORIDE 93(L) 98 - 107 mmol/L 04/21/2025 10:15 AM [facility] CO2,TOTAL 25 22 - 29 mmol/L 04/21/2025 10:15 AM [facility] ANION GAP 12 5 - 18 04/21/2025 10:15 AM [facility] GLUCOSE 132(H) 70 - 99 mg/dL 04/21/2025 10:15 AM [facility] CALCIUM 8.7(L) 8.8 - 10.4 mg/dL 04/21/2025 10:15 AM [facility] Comment: Reference ranges for this test were updated on 07/08/2024 to reflect our healthy population more accurately. Reference range changes are not retroactively applied to results, but previous results using the same methodology can be interpreted in the context of the new reference range. BUN 16 8 - 23 mg/dL 04/21/2025 10:15 AM [facility] CREATININE 0.59 0.50 - 0.90 mg/dL 04/21/2025 10:15 AM [facility] BUN/CREAT RATIO 27(H) 10 - 20 10:15 AM [facility] eGFR >90 >90 mL/min/1.7 3m2 04/21/2025 10:15 AM [facility] Comment:As of 2021, eG FR is calculated by the CKD-EPI creatinine equation without race adjustment. eGFR can be influenced by muscle mass, exercise, and diet. The reported eGFR is an estimation only and is only applicable if the renal function is stable. ALBUMIN 3.7(L) 4.0 - 4.9 g/dL 04/21/2025 10:15 AM CDT [facility] PROTEIN,TOTAL 5.7(L) 6.0 - 8.0 g/dL 04/21/2025 10:15 AM T [facility] BILIRUBIN,TOTAL 1.0 0.0 - 1.2 mg/dL 04/21/2025 10:15 AM CDT [facility] ALK PHOSPHATASE 62 35 - 104 IU/L 04/21/2025 10:15 AM CDT [facility] ALT (SGPT) 20 10 - 35 IU/L 04/21/2025 10:15 AM CDT [facility] AST (SGOT) 33 10 - 35 IU/L 04/21/2025 10:15 AM T [facility] Blood BLOOD SPECIMEN / Unknown Venipuncture / Unknown 04/21/2025 9:46 AM CDT 04/21/2025 9:49 AM CDT us Sabrina Jimenez PA CHEMISTRY Final R esult [facility] [address] [address] * EKG 12 Lead (04/21/2025 9:31 AM CDT) Interpretation Normal sinus rhythm Possible Left atrial enlargement Left ventricular hypertrophy with repolarization abnormality ( Sokolow-Lopez , Hima product ) 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 10-Oct-2016) Abnormal ECG When compared with ECG of 31-Jan-2025 22:32, Premature atrial complexes are no longer Present [facility] NOW Ventricular Rate 93 BPM BEYOND NOW Atrial Rate 93 BPM BEYOND NOW P-R Interval 180 ms BEYOND NOW QRS Duration 86 ms BEYOND NOW QT 374 ms BEYOND NOW QTc 465 ms BEYOND NOW P [place] 73 degrees BEYOND NOW R [place] 79 degrees BEYOND NOW T [place] 88 degrees BEYOND NOW 04/21/2025 9:31 AM CDT 04/22/2025 12:22 PM CDT us Sabrina Jimenez PA EKG ORD Final R esult [place], [place] * CK TOTAL (03/28/2025 9:29 AM CDT) CK,TOTAL 94 26 - 192 IU/L 03/28/2025 9:50 AM T [facility] Blood BLOOD SPECIMEN / Unknown Venipuncture / Unknown 03/28/2025 9:29 AM CDT 03/28/2025 9:32 AM CDT us Nicholas Ren MD CHEMISTRY Fin al Result [facility] [address] [place] [address] * (ABNORMAL) BASIC METABOLIC PANEL (03/28/2025 9:29 AM CDT) SODIUM 131(L) 136 - 145 mmol/L 03/28/2025 9:50 AM [facility] POTASSIUM 4.5 3.5 - 5.1 mmol/L 03/28/2025 9:50 AM [facility] CHLORIDE 95(L) 98 - 107 mmol/L 03/28/2025 9:50 AM [facility] CO2,TOTAL 25 22 - 29 mmol/L 03/28/2025 9:50 AM [facility] ANION GAP 11 5 - 18 03/28/2025 9:50 AM [facility] GLUCOSE 120(H) 70 - 99 mg/dL 03/28/2025 9:50 AM [facility] CALCIUM 9.0 8.8 - 10.4 mg/dL 03/28/2025 9:50 AM [facility] Comment: Reference ranges for this test were updated on 07/08/2024 to reflect our healthy population more accurately. Reference range changes are not retroactively applied to results, but previous results using the same methodology can be interpreted in the context of the new reference range. BUN 16 8 - 23 mg/dL 03/28/2025 9:50 AM T [facility] CREATININE 0.56 0.50 - 0.90 mg/dL 03/28/2025 9:50 AM [facility] BUN/CREAT RATIO 29(H) 10 - 20 9:50 AM T [facility] eGFR >90 >90 mL/min/1. 73m2 03/28/2025 9:50 AM [facility] Comment:As of 2021, eG FR is calculated by the CKD-EPI creatinine equation without race adjustment. eGFR can be influenced by muscle mass, exercise, and diet. The reported eGFR is an estimation only and is only applicable if the renal function is stable. Blood BLOOD SPECIMEN / Unknown Venipuncture / Unknown 03/28/2025 9:29 AM CDT 03/28/2025 9:32 AM CDT us Nicholas Ren MD CHEMISTRY Fin al Result [facility] [address] [place] [address] * ETHANOL SERUM OR PLASMA (03/12/2025 8:29 PM CDT) ETHANOL <0.010 <0.010 g/dL 03/12/2025 8:54 PM CDT [facility] Blood BLOOD SPECIMEN / Unknown Venipuncture / Unknown 03/12/2025 8:29 PM CDT 03/12/2025 8:32 PM CDT us Butch Kennedy MD CHEMISTRY Final Result Performing Organization Address City/[facility]/ZIP Co de Phone Number [facility] [address] [place] [phone] * LIPASE (03/12/2025 8:29 PM CDT) LIPASE 26.1 13.0 - 60.0 IU/L 03/12/2025 8:54 PM T [facility] Blood BLOOD SPECIMEN / Unknown Venipuncture / Unknown 03/12/2025 8:29 PM CDT 03/12/2025 8:32 PM CDT Butch Kennedy MD CHEMISTRY Final Result Performing Organization Address City/[facility]/ZIP Co de Phone Number [facility] [address] [address] * (ABNORMAL) URINALYSIS MICROSCOPIC (03/12/2025 8:27 PM CDT) RBC 0-2 0-2, None Seen /HPF 03/12/2025 8:49 PM T [facility] WBC 6-10(A) 0-2, 3-5, None Seen /HPF 03/12/2025 8:49 PM [facility] BACTERIA Many(A) None Seen, Rare, Few Bacteria/H PF 03/12/2025 8:49 PM [facility] EPITHELIAL CELLS Few None Seen, Few Epi/HPF 03/12/2025 8:49 PM [facility] WHITE CELL CLUMPS Present(A) (none) 03/12/2025 8:49 PM [facility] Urine URINE SPECIMEN / Unknown Non-Blood / Unknown 03/12/2025 8:27 PM CDT 03/12/2025 8:34 PM CDT us Owa Ed Triage URINE Final Result Performing Organization Address City/[facility]/ZIP Co de Phone Number [facility] [address] [address] * (ABNORMAL) UA W/ SEDIMENT EXAM REFLEXED PER CRITERIA (03/12/2025 8:27 PM CDT) COLOR Yellow Yellow Color 03/12/2025 8:38 PM CDT [facility] CLARITY Clear Clear Clarity 03/12/2025 8:38 PM T [facility] SPECIFIC GRAVITY,URINE <=1.005(A) 1.010, 1.015, 1.020, 1.025 03/12/2025 8:38 PM [facility] PH,URINE 6.5 6.0, 7.0, 8.0, 5.5, 6.5, 7.5, 8.5 03/12/2025 8:38 PM T [facility] UROBILINOGEN, QUALITATIVE Normal Normal EU/dl 03/12/2025 8:38 PM [facility] PROTEIN, URINE Negative Negative mg/dL 03/12/2025 8:38 PM [facility] GLUCOSE, URINE Negative Negative mg/dL 03/12/2025 8:38 PM [facility] KETONES,URINE Negative Negative mg/dL 03/12/2025 8:38 PM T [facility] BILIRUBIN,URI NE Negative Negative 03/12/2025 8:38 PM [facility] OCCULT BLOOD,URINE Small(A) Negative 03/12/2025 8:38 PM [facility] NITRITE Positive(A) Negative 03/12/2025 8:38 PM [facility] LEUKOCYTE ESTERASE Moderate(A) Negative 03/12/2025 8:38 PM [facility] Urine URINE SPECIMEN / Unknown Non-Blood / Unknown 03/12/2025 8:27 PM CDT 03/12/2025 8:34 PM CDT us Butch Kennedy MD URINE Final Result Performing Organization Address City/State/[facility] Co de Phone Number [facility] [address] [address] * (ABNORMAL) XR DXA BONE DENSITY 2 SITES (08/12/2014 4:04 PM PURCHASING AND FISCAL CLERK) Anatomical Region Laterality Modality Spine, HIPS, HIPL, HIPR Bone Den sitometry Narrative 08/13/2014 2:17 PM PURCHASING AND FISCAL CLERK Please see scanned document for results of this study. Procedure Note Monica Velazquez MD - 08/13/2014 Please see scanned document for results of this study. us Yinka CALABRESE Final Result from Last 3 Months or Most Recently Relevant to Health Maintenance Insurance [address] [place] [address] MEDICARE PART B HB ONLY [facility] MEDICARE PART A HB ONLY [id number] [place] [address] MEDICARE PART B HB ONLY Member Subscriber Plan / Payer (Ef fective 2004-Present) Name:Keiry Juarez Member ID:[id number] Relation to Subscriber:Self Name:Juarez Keiry K Subscriber ID:[id number] Payer ID:Not on file Group ID:Not on file Type:Not on file Address: ATTN: CLAIMS [address] [place] [phone] [address] [place] [address] MEDICARE PART B HB ONLY MEDICAID [address] [place] [address] [facility] [employer]HIC[employer] INS Advance Directives Documents on File Type Date Recorded 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 Healthcare Directive 09/06/2018 5:30 PM 7 Healthcare Directive 06/25/2013 4:25 PM L IVING WILL, 05/23/2013 Healthcare Directive 06/13/2013 12:00 AM ADVANCED DIRECTIVE Healthcare Directive 12/26/2011 12:00 AM A DVANCED DIRECTIVE Healthcare Directive 12/26/2011 12:00 AM A DVANCED DIRECTIVE * DNR (Latest Code Status on File) Date Activated Date Inactivated Comments 04/21/2025 9:56 AM 04/23/2025 3:14 PM Question Answer Comments Code Status Discussion: Reviewed Preferences * Full Code Date Activated Date Inactivated Comments 02/01/2025 2:59 AM 02/01/2025 3:45 PM Question Answer Comments Code Status Discussion: Reviewed Preferences * DNR Date Activated Date Inactivated Comments 10/10/2016 9:45 PM 10/11/2016 11:34 PM Question Answer Comments Code Status Discussion: Discussed * Full Code Date Activated Date Inactivated Comments 09/15/2016 9:20 PM 09/20/2016 6:11 PM Question Answer Comments Code Status Discussion: Not Discussed Care Teams Flight Purser Relationship Specialty Start Date End Date Rosalva Vallecillo PA-C [address] [place] [address] PCP - General Physician Data Management Manager 04/21/25
--- OUTSIDE RECORDS SUMMARY | 2025-05-08 09:39 | XMS_ITS | Encounter Summary ---
Author Organization [place] Address [facility] [place] [address] Care Team Providers Care Deputy Director Of Public Works Name Role Phone Trinidad Morris APRN RETAIL SPECIALIST Primary Care Provi alvarado Unavailable Mauro Jackman MD Primary Care Provider [phone] Sheila Osei MD Unavailable + [phone] Sheila Osei MD Unavailable + [phone] No Ref-Primary, Physician Primary Care Provider Trinidad Morris APRN, CNP Unavailable Un available Sheila Osei MD Unavailable + [phone] Nicol Feldman MD Unavailable +[phone] Reason for Visit * Reason Comments Medication Refill Tramadol Encounter Details Date Type Department Care Team (Late st Contact Info) Description 12/14/[address] [place] [address] Trinidad Morris APRN CNP Medication Refill (Tramadol ) Social History Tobacco Use Types Packs/Day Years Used Date Smoking Tobacco: Former Smokeless Tobacco: Never Alcohol Use Standard Drinks/Week Comments No 0 (1 standard drink = 0.6 oz pur e alcohol) Comments No Sex and Gender Information Value Date Recorded Sex Assigned at Not on file 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 Gender Identity Not on file Sexual Orientation [...] Total Score: 0 10/27/19 17 7:10 AM GASOLINE TRUCK OPERATOR documented as of this encounter Care Teams Deputy Director Of Public Works Relationship Specialty Start Date End Date Trinidad Morris APRN RETAIL SPECIALIST PCP - General Nurse Practitioner - Adult Health 09/26/16 02/11/17 Mauro Jackman MD [address] [place] [address] PCP - General Internal Medicine 02/12/17 12/16/18 Sheila Osei MD [address] [place] [address] PCP - Assigned PCP 02/17/18 11/05/18 No Ref-Primary, Physician PCP - General 01/14/19 Sheila Osei MD [address] [place] [address] Assigned PCP 02/17/18 02/15/19 Trinidad Morris APRN RETAIL SPECIALIST Assigned PCP 02/16/19 11/29/19 Sheila Osei MD [address] [place] [address] Assigned PCP 11/30/19 02/19/21 Nicol Feldman MD XXX RETIRED 01/31/2022 XXX Assigned OBGYN Provider 06/25/20 07/17/20 documented as of this encounter
--- OUTSIDE RECORDS SUMMARY | 2025-05-08 09:39 | XMS_ITS | Clinical Summary ---
Author Organization [place] Address [address] [place] [address] Care Team Providers Care Supply Aide Name Role Phone No Ref-Primary, Physician Primary [...] vicodin and tramadol. Patient developed acne from [place] Mixture of vicodin and tramadol. Patient developed acne from [place] Lidocaine 09/26/2016 Lidocaine patch changed taste of [...] the past: Yes Date/Location: Pain management center [place] 10/26/2016 Last 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
--- NOTE | 2025-05-08 09:41 | XR_ITS ---
Patient: BRANDON VARELA Facility:?[facility] Patient ID:?[id number] Site Patient ID:?[id number]. Site :?[id number] Study:?XRay-Chest 1 VIEW PORTABLE-05/08/2025 10:03:56 AM Ordering Physician:Raul Mcpherson Final Report: Indication: Shortness of breath Technique: Chest 1 view. Comparison: Chest radiograph 03/29/2025. Findings/Impression: Cardiovascular and mediastinum: Cardiomediastinal silhouette is unchanged. Lungs and pleural space: Lung volumes are mildly low with diffuse interstitial prominence and patchy lower lung predominant airspace opacities most suspicious for pulmonary edema. Small bilateral pleural effusions. No pneumothorax. Bones and soft tissues: No acute findings. Dictated by Sophie Cheung MD @ 05/08/2025 10:09:49 AM Signed by:?Sophie Cheung MD @05/08/2025 10:09:49 AM (Electronic Signature)
--- NOTE | 2025-05-08 09:46 | ED.GENADULT ---
HPI - General Adult General Chief complaint: Shortness of Breath/Dyspnea Stated complaint: difficulty breathing Time Seen by Provider: 05/08/25 09:41 History of Present Illness HPI narrative: Patient is an 79 year white female with chronic dyspnea and chronic pain, from which she describes degenerative disc disease. The patient lives in assisted living in [place] [facility]. She has had no fevers or chills but reports shortness of breath over the last few weeks. She has a history of emphysema. No cough no production to her sputum at all. She has had really no chest pain, did describes chronic leg swelling. She has had a complex history that is reviewed in her chart. Main complaint today is shortness of breath she does feel better after a partial albuterol neb given in the ambulance. Something she has had a component of congestive heart failure as well as CB COPD as mention Related Data Allergies Allergy/AdvReac Type Severity Reaction Status Date / Time amlodipine Allergy Intermediate edema Verified 03/29/25 21:36 buprenorphine Allergy Intermediate Anxiety Verified 03/29/25 21:36 naloxone Allergy Intermediate Anxiety Verified 03/29/25 21:36 amitriptyline Allergy Mild gastritis Verified 03/29/25 21:36 gabapentin Allergy Mild gi upset Verified 03/29/25 21:36 losartan Allergy Mild gi Verified 03/29/25 21:36 intolerance Penicillins Allergy Mild Rash Verified 03/29/25 21:36 amoxapine Allergy Unknown Verified 03/29/25 21:36 atropine Allergy Unknown Verified 03/29/25 21:36 bupropion Allergy Unknown Verified 03/29/25 21:36 buspirone Allergy Unknown Verified 03/29/25 21:36 cholestyramine Allergy Unknown Verified 03/29/25 21:36 ciprofloxacin Allergy Unknown Verified 03/29/25 21:36 citalopram Allergy Unknown Verified 03/29/25 21:36 clomipramine Allergy Unknown Verified 03/29/25 21:36 colesevelam Allergy Unknown Verified 03/29/25 21:36 diphenoxylate Allergy Unknown Verified 03/29/25 21:36 doxepin Allergy Unknown Verified 03/29/25 21:36 duloxetine Allergy Unknown Verified 03/29/25 21:36 escitalopram Allergy Unknown Verified 03/29/25 21:36 fluoxetine Allergy Unknown Verified 03/29/25 21:36 hydrochlorothiazide Allergy Unknown Verified 03/29/25 21:36 lorazepam Allergy Unknown Verified 03/29/25 21:36 mirtazapine Allergy Unknown Verified 03/29/25 21:36 nortriptyline Allergy Unknown Verified 03/29/25 21:36 olanzapine Allergy Unknown Verified 03/29/25 21:36 oxycodone Allergy Unknown Verified 03/29/25 21:36 quetiapine Allergy Unknown Verified 03/29/25 21:36 thioridazine Allergy Unknown Verified 03/29/25 21:36 trazodone Allergy Unknown Verified 03/29/25 21:36 acetaminophen (From [place]) AdvReac Mild acne Verified 03/29/25 21:36 cortisone AdvReac Mild lack of Verified 03/29/25 21:36 appetite cyclobenzaprine AdvReac Mild Nausea Verified 03/29/25 21:36 hydrocodone (From [place]) AdvReac Mild acne Verified 03/29/25 21:36 lidocaine AdvReac Mild changes Verified 03/29/25 21:36 taste of food Nitroimidazoles AdvReac Mild gi Verified 03/29/25 21:36 intolerance Review of Systems Status of ROS: Reports: 6 or more systems reviewed and unremarkable except as noted in History and below PFSH PFS Medical History Connective tissue disorder ?M35.9 - Systemic involvement of connective tissue, unspecified (ICD-10) MOSES (generalized anxiety disorder) ?F41.1 - Generalized anxiety disorder (ICD-10) History of suicide attempt ?Z91.51 - Personal history of suicidal behavior (ICD-10) Somatization disorder ?F45.0 - Somatization disorder (ICD-10) Opioid use disorder, severe, dependence ?F11.20 - Opioid dependence, uncomplicated (ICD-10) Cluster B personality disorder ?F60.89 - Other specific personality disorders (ICD-10) Unspecified personality disorder ?F60.9 - Personality disorder, unspecified (ICD-10) Moderate recurrent major depression ?F33.1 - Major depressive disorder, recurrent, moderate (ICD-10) Pain management contract broken ?Z91.148 - Patient's other noncompliance with medication regimen for other reason (ICD-10) Osteoarthritis ?M19.90 - Unspecified osteoarthritis, unspecified site (ICD-10) Female genital prolapse ?N81.9 - Female genital prolapse, unspecified (ICD-10) Chronic low back pain ?M54.50 - Low back pain, unspecified (ICD-10) ?G89.29 - Other chronic pain (ICD-10) Lumbar foraminal stenosis ?M48.061 - Spinal stenosis, lumbar region without neurogenic claudication (ICD-10) Spondylolisthesis of lumbar region ?M43.16 - Spondylolisthesis, lumbar region (ICD-10) DDD (degenerative disc disease) Recurrent genital herpes simplex ?A60.00 - Herpesviral infection of urogenital system, unspecified (ICD-10) Adalgisa infection ?B37.9 - Candidiasis, unspecified (ICD-10) Thrombocytopenia ?D69.6 - Thrombocytopenia, unspecified (ICD-10) Normocytic anemia ?D64.9 - Anemia, unspecified (ICD-10) Hyponatremia ?E87.1 - Hypo-osmolality and hyponatremia (ICD-10) Acute heart failure with preserved ejection fraction ?I50.31 - Acute diastolic (congestive) heart failure (ICD-10) Essential hypertension ?I10 - Essential (primary) hypertension (ICD-10) Surgical History H/O colectomy ?Z90.49 - Acquired absence of other specified parts of digestive tract (ICD-10) H/O tubal ligation ?Z98.51 - Tubal ligation status (ICD-10) Social History Smoking Status: Former smoker How often do you have a drink containing alcohol: never AUDIT-C Alcohol total score: 0 Non-prescribed substance use: denies use Exam Narrative: Exam Narrative: Objective: Patient's O2 sat now on oxygen 2 L nasal cannula is in the mid 90% range. Alert orient x3, no cyanosis noted HEENT shows no facial asymmetry neck is supple chest there is basilar wheezes that clear with deep breathing Heart rhythm regular 3/6 holosystolic murmur. She reports she has had a murmur for a long time. Abdomen benign soft Extremities are 1+ edema/ edema is chronic per the patient. Neurologic nonfocal upper lower extremities. Const: Vital Signs, click to edit/add: Vital Signs - 24 hr 05/08/25 09:44 05/08/25 09:45 05/08/25 09:54 Temperature 99.2 F Pulse Rate Pulse Rate [Pulse Oximeter] 86 Respiratory Rate 26 H 26 H 30 H Blood Pressure 165/81 H Blood Pressure [Ri ght Upper Arm] 165/81 H Pulse Oximetry 82 L Oxygen Delivery Me thod Room Air Oxygen Flow Rate 05/08/25 09:56 05/08/25 10:00 05/08/25 10:15 Temperature Pulse Rate 90 91 Pulse Rate [Pulse Oximeter] Respiratory Rate 53 H 17 Blood Pressure Blood Pressure [Ri ght Upper Arm] Pulse Oximetry 92 91 90 Oxygen Delivery Me thod Nasal Cannula Oxygen Flow Rate 2 05/08/25 10:45 Temperature Pulse Rate Pulse Rate [Pulse Oximeter] Respiratory Rate 18 Blood Pressure Blood Pressure [Ri ght Upper Arm] Pulse Oximetry Oxygen Delivery Me thod Oxygen Flow Rate Course Vital Signs Vital signs: Initial Vital Signs Respiratory Rate 26 H 05/08/25 09:44 Blood Pressure 165/81 H 05/08/25 09:44 Blood Pressure Mean 109 H 05/08/25 09:44 Vital Signs Respiratory Rate 26 H 05/08/25 09:44 Blood Pressure 165/81 H 05/08/25 09:44 Temperature 99.2 F 05/08/25 09:54 Pulse Rate 91 05/08/25 10:15 Respiratory Rate 18 05/08/25 10:45 Blood Pressure 165/81 H 05/08/25 09:54 Pulse Oximetry 90 05/08/25 10:15 Oxygen Delivery Method Nasal Cannula 05/08/25 09:56 Oxygen Flow Rate 2 05/08/25 09:56 Medications Administered Medications: Discontinued Medications Generic Name Dose Route Start Last Admin Trade Name Freq PRN Reason Stop Dose Admin Albuterol/Ipratropium 1 neb 05/08/25 09:41 05/08/25 10:21 Iprat-Albut 0.5-2.5 Mg/3 Ml Neb IH 05/08/25 09:42 1 neb ONCE ONE Administration Aspirin 324 mg 05/08/25 09:41 05/08/25 10:19 Aspirin 81 Mg Tab.Chew PO 05/08/25 09:42 324 mg ONCE ONE Administration Furosemide 40 mg 05/08/25 10:10 05/08/25 10:58 Furosemide 10 Mg/Ml Inj IV 05/08/25 10:11 40 mg ONCE ONE Administration Methylprednisolone Sodium Succinate 125 mg 05/08/25 09:41 05/08/25 10:21 Methylprednisolone Sod Succ 62.5 Mg/Ml (125) IVP 05/08/25 09:42 125 mg ONCE ONE Administration Medical Decision Making MDM Narrative Medical decision making narrative: [age] year white female with chronic pain, personality disorder, should chronic shortness of breath, COPD, and CHF. Presents with shortness of breath. At this point will check chest x-ray, laboratory studies, proBNP, electrolytes. EKG and troponin. Disposition pending findings above. Differential includes acute coronary syndrome, congestive heart failure. The patient has declined diuretic use in the past but that may be reasonable to reconsider. Will get her medication lists and further care pending of her clinical results and clinical status. Will also give her a DuoNeb as well as a Solu-Medrol IV Addendum 10:43 a.m.: The patient has a chest x-ray that independent rotation by myself shows pulmonary edema. She has been hesitant take Lasix, and in fact declined it at 1st and now will take IV Lasix. She reports she has Lasix at home. I recommend she take a dose of that each morning for the next 3 days and then at that time see primary care physician. Continue home oxygen. At this time I think she has an exacerbation of CHF as opposed to COPD. And I think we can use the Lasix. And then careful monitoring and follow-up with her primary care physician. Her EKG by my independent interpretation shows LVH artifact, her white count is normal at 6320 her hemoglobin is low at 8.1, she denies acute bleeding, and this should be follow-up with her regular care physician. Her venous blood gas looks reassuring. Point of care troponin is negative. Viral studies and ER profile pending. Patient also has a positive COVID test and so she has COVID illness certainly that could change her chest x-ray but I think this looks more like congestive failure, would still recommend the Lasix. Symptomatic management Tylenol observation rest. Labs reviewed, she does have a low hemoglobin in the should be worked up in the clinic, BNP is elevated as well, she is positive for COVID but would recommend she take the Lasix more in the morning for the next 3 days. Follow up with primary care at that time. Would avoid contact with other individuals as much as possible. For the next several days, point of care troponin was negative. EKG for the patient showed as mention artifact sinus rhythm left ventricular hypertrophy. This is by my independent read. Lab Data Labs: Lab Results 05/08/25 05/08/25 05/08/25 Range/Units 09:42 09:58 10:05 WBC 6.32 (4.50-11.00) K/uL RBC 2.68 L (4.00-5.20) m/uL Hgb 8.1 L (12.0-16.0) gm/dL Hct 25.3 L (33.0-51.0) % MCV 94 (80-100) fL MCH 30 (26-34) pg MCHC 32 (32-36) gm/dL RDW Coeff of Bryce 17.0 H (11.5-15.5) % Plt Count 150 (140-440) K/uL Neut % (Auto) 84.6 H (42.0-72.0) % Lymph % (Auto) 10.0 L (20-44) % [place] % (Auto) 4.7 (0.0-11.0) % Eos % (Auto) 0.2 (0.0-7.0) % Baso % (Auto) 0.3 (0.0-3.0) % Neut # (Auto) 5.30 (1.7-7.0) K/uL Lymph # (Auto) 0.60 L (0.90-2.90) K/uL [place] # (Auto) 0.30 (0.00-0.90) K/UL Eos # (Auto) 0.01 (0.00-0.50) K/uL Baso # (Auto) 0.02 (0.00-0.30) K/uL Abs Immat Gran (auto) 0.01 (0.00-0.30) K/uL Imm/Tot Granulo (auto) 0.2 % INR 1.10 (0.91-1.10) APTT 32 (23-33) Seconds VBG pH 7.483 H (7.32-7.43) VBG pCO2 35 L (40-50) mmHG VBG pO2 91.4 H (25-47) mmHG VBG HCO3 26 (21-28) mmol/L Sodium 127 L (135-149) mmol/L Potassium 4.8 (3.6-5.1) mmol/L Chloride 95 L (96-114) mmol/L Carbon Dioxide 26 (20-32) mmol/L Anion Gap 6 L (7-15) mEq/L BUN 17 (7-30) mg/dL Creatinine 0.5 (0.5-1.5) mg/dL Estimated Creat Clear 35.49 Estimated GFR 95 ml/min Glucose 120 H (60-115) mg/dL Lactate 0.7 (0.5-1.9) mmol/L Calcium 8.5 (8.4-10.6) mg/dL Total Bilirubin 1.7 H (0.1-1.5) mg/dL Direct Bilirubin 0.6 H (0.0-0.5) mg/dL AST 74 H (12-35) U/L ALT 23 (4-35) U/L Alkaline Phosphatase 39 L (40-150) U/L NT-Pro-B Natriuret Pep 4760 H (See Note) pg/mL Total Protein 6.3 (6.0-8.3) g/dL Albumin 3.8 (3.3-5.0) g/dL Ethyl Alcohol < 0.01 (0.01-0.03) % SARS-CoV-2 (PCR) POSITIVE SARS-CoV-2 A (Negative) Influenza Type A (PCR) Negative PCR FLU A (Negative) Influenza Type B (PCR) Negative PCR FLU B (Negative) RSV (PCR) Negative PCR RSV (Negative) POC Troponin I 0.03 (0.01-0.04) ng/ml Discharge Plan Discharge Clinical Impression: Congestive heart failure, COPD (chronic obstructive pulmonary disease), Anemia, COVID-19 Patient Disposition: Home w/ Parent or Adult Condition: Improved Instructions: COVID-19 and Chronic Health Conditions (ED) Additional Instructions: Recommend Lasix that you have at home in the morning for the next 3 days, would recommend you to see your regular doctor at that time. Continue home oxygen, continue other medications. Your hemoglobin is also low which indicates anemia and he should talk about that with your regular doctor. Recommend avoidance of direct contact with people over the next few days until you are feeling better. Your COVID test is positive. Activity Level: Light activity Discharge Diet: Heart Healthy (2 gm sodium, low fat) Follow Up/Referrals: Provider,Not a Local [Primary Care Provider, Family Practice] Stand Alone Forms: MyHealth Info Instructions Procedures ABG Interpretation ABG Results: 05/08/25 10:05 VBG pH 7.483 H VBG pCO2 35 L VBG pO2 91.4 H VBG HCO3 26
[2025-05-08 10:15] LABS: HCO3 VBG 26 mmol/L (21-28); Lactate* 0.7 mmol/L (0.5-1.9); PCO2 VBG 35 mmHG (40-50); PO2 VBG 91.4 mmHG (25-47); pH VBG 7.483 (7.32-7.43)
[2025-05-08] MEDS: ASPIRIN 81 MG TAB.CHEW 324 MG PO (10:19)
[2025-05-08] MEDS: IPRAT-ALBUT 0.5-2.5 MG/3 ML NEB 1 NEB IH (10:21)
[2025-05-08] MEDS: METHYLPREDNISOLONE SOD SUCC 62.5 MG/ML (125) 125 MG IVP (10:21)
[2025-05-08 10:27] LABS: Hematocrit 25.3 % (33.0-51.0); Hemoglobin* 8.1 gm/dL (12.0-16.0); Immature Granulocytes Abs Auto 0.01 K/uL (0.00-0.30); Immature Granulocytes Pct Auto 0.2 %; Mean Corpuscular HGB Conc 32 gm/dL (32-36); Mean Corpuscular Hemoglobin 30 pg (26-34); Mean Corpuscular Volume 94 fL (80-100); RDW Coefficient of Variation % 17.0 % (11.5-15.5); Red Blood Count 2.68 m/uL (4.00-5.20); White Blood Count* 6.32 K/uL (4.50-11.00)
[2025-05-08 10:32] LABS: Troponin, Point-of-Care* 0.03 ng/ml (0.01-0.04)
[2025-05-08 10:38] LABS: Lymphocytes Absolute Auto 0.60 K/uL (0.90-2.90); Slide Review Reflex No
[2025-05-08 10:40] LABS: Albumin* 3.8 g/dL (3.3-5.0); Chloride* 95 mmol/L (96-114); Potassium* 4.8 mmol/L (3.6-5.1); Sodium* 127 mmol/L (135-149)
[2025-05-08 10:42] LABS: Blood Urea Nitrogen* 17 mg/dL (7-30); Creatinine* 0.5 mg/dL (0.5-1.5); Est. Creatinine Clearance* 35.49; Estimated Glomerular Filt Rate 95 ml/min
[2025-05-08 10:43] LABS: Alanine Aminotransferase* 23 U/L (4-35); Alkaline Phosphatase* 39 U/L (40-150); Anion Gap 6 mEq/L (7-15); Aspartate Amino Transferase* 74 U/L (12-35); Bilirubin Direct* 0.6 mg/dL (0.0-0.5); Bilirubin Total* 1.7 mg/dL (0.1-1.5); Calcium* 8.5 mg/dL (8.4-10.6); Carbon Dioxide* 26 mmol/L (20-32); Glucose* 120 mg/dL (60-115); Total Protein* 6.3 g/dL (6.0-8.3)
[2025-05-08 10:44] LABS: INR 1.10 (0.91-1.10); Prothrombin Time 15.0 Seconds
[2025-05-08 10:48] LABS: PCR FLU A Negative PCR FLU A (Negative); PCR FLU B Negative PCR FLU B (Negative); PCR RSV Negative PCR RSV (Negative); SARS PCR* POSITIVE SARS-CoV-2 (Negative)
[2025-05-08 10:56] LABS: Ethanol* < 0.01 % (0.01-0.03); NT Pro B Type NatriureticPept* 4760 pg/mL (See Note)
[2025-05-08] MEDS: FUROSEMIDE 10 MG/ML inj 40 MG IV (10:58)
== END 2025-05-08 12:37 | disposition home or self-care (01) ==
PROVIDERS: Emergency Provider Family Medicine
DX: I50.9 Heart failure, unspecified (principal); J44.9 Chronic obstructive pulmonary disease, unspecified; D64.9 Anemia, unspecified; U07.1 COVID-19
CPT/HCPCS: 36415; 71045; 80048; 80076; 82077; 82803; 83605; 83880; 84484; 85025; 85610; 85730; 87631; 93005; 94761; 96374; 96375; 99285; A9270; J1938; J2919

== ENCOUNTER 2025-05-08 12:35 | Outpatient (CLI) | payer OTHER, SELFPAY | END 2025-05-08 12:36 | disposition home or self-care (01) | LOC: AMB 05-11 10:16 | PROVIDERS: Visit Provider Family Medicine | DX: R06.02 Shortness of breath (principal); U07.1 COVID-19 | CPT/HCPCS: A0425; A0428 ==